=== PATIENT | male | born 1940 | race Caucasian/White ===

== ENCOUNTER 2016-08-29 00:45 | Inpatient (IN) | payer OTHER ==
--- NOTE | 2016-08-29 01:24 | PROVIDER DOCUMENTATION ---
HPI-Respiratory General - General Chief Complaint: Shortness of Breath Stated Complaint: SOB Time Seen by Provider: 08/29/16 00:49 Source: patient Allergies/Adverse Reactions: Patient Allergies Allergy/AdvReac Type Severity Reaction Status Date / Time No Known Allergies Allergy Verified 08/29/16 01:04 Home Medications: Home Medication List Medication Instructions Recorded Confirmed Last Taken Type Cyanocobalamin (Vitamin B-12) 1,000 mcg PO QAM 12/04/12 08/29/16 08/28/16 09:00 History [Vitamin B-12] Pantoprazole [Protonix] 40 mg PO DAILY@0700 #30 tablet 08/22/15 08/29/16 09:00 Rx Docusate Sodium 100 mg PO BID 09/20/15 08/29/16 08/28/16 18:00 History Ibrutinib [Imbruvica] 3 cap PO QHS 09/20/15 08/29/16 08/28/16 20:00 History Metoprolol Succinate E.r. [Toprol 75 mg PO Q12H #270 tablet 09/27/15 08/29/16 18:00 Rx Xl] Acetaminophen [Tylenol] 650 mg PO Q4H PRN PRN #0 tablet 10/13/15 08/29/16 Unknown Rx Sucralfate [Carafate Liquid] 1 gm PO AC PRN #60 udc 10/13/15 08/29/16 07/14/16 07:00 Rx Digoxin [Lanoxin] 150 microgm PO QAM 07/14/16 08/29/16 08/28/16 09:00 History Ferrous Sulfate [Albafort] 325 mg PO BID 07/14/16 08/29/16 08/28/16 20:00 History Insulin Glargine [Lantus] 40 unit SUBQ QHS 07/14/16 08/29/16 08/28/16 20:00 History Insulin Lispro [Humalog] 5 unit SQ AC 07/14/16 08/29/16 08/28/16 18:00 History ATORVAstatin [Lipitor] 10 mg PO QHS #0 tablet 07/16/16 08/29/16 08/28/16 20:00 Rx Warfarin [Coumadin] 3 mg PO SuMoWeThFrSa #0 tablet 12/08/29/16 08/28/16 Rx Warfarin [Coumadin] 5 mg PO Tu@2100 #0 tablet 07/16/16 08/29/16 08/19/16 Rx Folic Acid 1 mg PO QAM 08/29/16 08/29/16 08/28/16 09:00 History Hydrocodone/Acetaminophen [Abernathy 1 each PO PRN PRN 08/29/16 08/29/16 Unknown History 10-325 Tablet] Methocarbamol 500 mg PO PRN PRN 08/29/16 08/29/16 Unknown History Promethazine [Phenergan] 12.5 mg PO Q6H PRN PRN 08/29/16 08/29/16 Unknown History - History of Present Illness-Resp Nature of Presenting Problem: 75 year old M presents to the ED with a cc of SOB and dry cough with an onset of 2 days ago. PT states today he noticed his right lower leg swelling. PT states that his ABD also feels distended which is what is causing him to not be able to take a deep breath. Last BM was this afternoon. Severity in ED: reports: mild Onset/Duration: reports: 2 days ago Timing: reports: still present Cough Quality/Degree: reports: mild, dry cough Associated Symptoms: reports: cough, shortness of breath Similar Symptoms Previously?: No Recently seen or treated by another doctor?: No Review of Systems - Adult - REVIEW OF SYSTEMS - ADULT Constitutional: denies: chills, fever Eyes: reports: no symptoms reported Ears, Nose, Mouth & Throat: reports: no symptoms reported Cardiovascular: denies: chest pain, palpitations Respiratory: reports: cough, shortness of breath Gastrointestinal: denies: nausea, vomiting Genitourinary: reports: no symptoms reported Musculoskeletal: reports: no symptoms reported Integumentary: denies: skin sores/ulcer, skin thickening Neurological: reports: no symptoms reported Psychiatric: reports: no symptoms reported Endocrine: reports: no symptoms reported Hematologic/Lymphatic: reports: no symptoms reported Allergic/Immunologic: reports: no symptoms reported All Other Systems: Reviewed and Negative Past History - Adult - PAST MEDICAL HISTORY-ADULT Review of Records: reports: Nursing Assessment Review, Medications Reviewed Major Childhood Illnesses: reports: denies history Cardiovascular: reports: CAD, HTN, hyperlipidemia Respiratory: reports: denies history Gastrointestinal: reports: GERD Obstetrical/Gynecological: reports: denies history Genitourinary: reports: denies history Musculoskeletal: reports: denies history Neurological: reports: denies history Endocrine/Immune: reports: cancer, Diabetes, Leukemia (CLL, ITP) Other Conditions: reports: denies history - PRIOR SURGERIES/PROCEDURES Surgical/Procedure History: reports: tonsillectomy, other, cardiac stent - IMMUNIZATION STATUS Childhood Immunizations: See Nurse Assessment Flu Vaccine: See Nurse Assessment - FAMILY HISTORY Family History: reviewed, not pertinent - SOCIAL HISTORY Smoking: non-smoker Substance Use: none/never Alcohol Use Frequency: never Physical Exam-General - CONSTITUTIONAL General Appearance: appears well, alert, no apparent distress - EYES Eyes: other (bilateral lower lid erythema) - RESPIRATORY Respiratory: chest non-tender, lungs clear, normal breath sounds - CARDIOVASCULAR Cardiovascular: normal peripheral pulses, regular rate, rhythm, no edema, other (port to left chest) - GASTROINTESTINAL (ABDOMEN) Abdominal Exam: normal bowel sounds, non tender, soft - MUSCULOSKELETAL Extremity: pedal edema (2+ right lower leg, erythema, and an 1x1 cm lesion weaping serous fluid) - SKIN Integumentary: normal color, normal turgor, warm/dry - PSYCHIATRIC Psych/Mental Status: normal mood/affect, normal thought content, normal thought process, oriented x 3 Progress - PLAN OF CARE/RESULTS Progress/Plan/Lab Results: plan of care: imaging, labs, medications, EKG Orders Category Date Time Status Cardiac Monitoring DIRECTED Care 08/29/16 00:50 Active Saline Loc NOW Care 08/29/16 00:50 Active CHEST-PORTABLE [RAD] Stat Exams 08/29/16 00:50 Taken CBC WITH ELECTRONIC DIFF [HEME] Stat Lab 08/29/16 01:15 Completed CK PROFILE [SP CHEM] Stat Lab 08/29/16 01:15 Completed COMPREHENSIVE METABOLIC PANEL [CHEM] Stat Lab 08/29/16 01:15 Completed DIGOXIN [TDM] Stat Lab 08/29/16 01:15 Completed LACTATE, PLASMA [CHEM] Stat Lab 08/29/16 01:15 Completed MAGNESIUM [CHEM] Stat Lab 08/29/16 01:15 Completed PRO B-NATRIURETIC PEPTIDE Stat Lab 08/29/16 01:15 Completed PROTIME WITH INR [COAG] Stat Lab 08/29/16 01:15 Completed PTT [COAG] Stat Lab 08/29/16 01:15 Completed TROPONIN T Stat Lab 08/29/16 01:15 Completed CefTRIAXONE 1 GM/NS [Rocephin 1 gm/Ns] 50 ml Med 08/29/16 01:58 Active IV NOW EKG [EKG] Stat Ther 08/29/16 00:48 Ordered Laboratory Tests 08/29/16 08/29/16 08/29/16 01:15 01:15 01:15 WBC 13.00 H RBC 4.18 L Hgb 12.8 L Hct 37.6 L MCV 90.0 MCH 30.6 MCHC 34.0 RDW Std Deviation 17.3 H Plt Count 372 MPV 10.6 H Immature Gran % (Auto) 0.5 Neut % (Auto) 69.5 Lymph % (Auto) 15.6 L [place] % (Auto) 13.2 H Eos % (Auto) 1.0 Baso % (Auto) 0.2 Immature Gran # (Auto) 0.07 H Neut # (Auto) 9.03 H Lymph # (Auto) 2.03 [place] # (Auto) 1.71 H Eos # (Auto) 0.13 Baso # (Auto) 0.03 PT INR PTT (Actin FS) Sodium 137 Potassium 3.8 Chloride 101 Carbon Dioxide 24 L Anion Gap 12 BUN 10 Creatinine 0.7 Estimated GFR/1.73 m2 > 60 BUN/Creatinine Ratio 14 Glucose 90 Calculated Osmolality 272 Calcium 8.5 L Magnesium 1.8 Total Bilirubin 1.10 H AST 18 ALT 16 Alkaline Phosphatase 124 H Creatine Kinase 31 Troponin T Lyt-D-Idjecuevvis Pept Total Protein 5.6 L Albumin 3.0 L Globulin 2.6 Albumin/Globulin Ratio 1.2 Plasma Lactate Digoxin 1.0 08/29/16 08/29/16 08/29/16 01:15 01:15 01:15 WBC RBC Hgb Hct MCV MCH MCHC RDW Std Deviation Plt Count MPV Immature Gran % (Auto) Neut % (Auto) Lymph % (Auto) [place] % (Auto) Eos % (Auto) Baso % (Auto) Immature Gran # (Auto) Neut # (Auto) Lymph # (Auto) [place] # (Auto) Eos # (Auto) Baso # (Auto) PT 23.2 H INR 2.17 PTT (Actin FS) 37.4 H Sodium Potassium Chloride Carbon Dioxide Anion Gap BUN Creatinine Estimated GFR/1.73 m2 BUN/Creatinine Ratio Glucose Calculated Osmolality Calcium Magnesium Total Bilirubin AST ALT Alkaline Phosphatase Creatine Kinase Troponin T < 0.010 Tbo-F-Eexusbazsjv Pept 223 Total Protein Albumin Globulin Albumin/Globulin Ratio Plasma Lactate Digoxin 08/29/16 01:15 WBC RBC Hgb Hct MCV MCH MCHC RDW Std Deviation Plt Count MPV Immature Gran % (Auto) Neut % (Auto) Lymph % (Auto) [place] % (Auto) Eos % (Auto) Baso % (Auto) Immature Gran # (Auto) Neut # (Auto) Lymph # (Auto) [place] # (Auto) Eos # (Auto) Baso # (Auto) PT INR PTT (Actin FS) Sodium Potassium Chloride Carbon Dioxide Anion Gap BUN Creatinine Estimated GFR/1.73 m2 BUN/Creatinine Ratio Glucose Calculated Osmolality Calcium Magnesium Total Bilirubin AST ALT Alkaline Phosphatase Creatine Kinase Troponin T Dwn-H-Erlifhvifcr Pept Total Protein Albumin Globulin Albumin/Globulin Ratio Plasma Lactate 1.5 Digoxin Vital Signs - 24 hr 08/29/16 00:50 Temperature 97.6 F Pulse Rate 68 Respiratory 26 H Rate Blood Pressure 124/61 O2 Sat by Pulse 91 L Oximetry Pt/family given results. Pt will be admitted to the hospitalist group. PT/ Family in agreement with plan of care. - EKG 1 Time of EKG reading by physician:: 00:53 EKG Read and Signed by:: Jose G Perales EKG Interpretation (*Must complete 3 of following elements*): Abnormal Rate: 66 Rhythm: atrial fibrillation Riva: left QRS: RBB - XRAY 1 XRAY Study: Chest Impression: Abnormal XRAY Interpretation: right middle and lower lobe pneumonia: Dr. Perales-ED MD - CONSULTS/PCP/HOSPITALIST Notification #1 *Consult/PCP/Hospitalist*: Dr. Kang-hospitalist, [facility] Time Discussed: 01:57 Consult Disposition: Will see in ED, Admit Departure - Departure Time of Disposition Order: 02:01 DIAGNOSIS: Right middle lobe pneumonia Qualifiers: Pneumonia type: due to unspecified organism Qualified Code(s): J18.1 - Lobar pneumonia, unspecified organism Right lower lobe pneumonia Qualifiers: Pneumonia type: due to unspecified organism Qualified Code(s): J18.1 - Lobar pneumonia, unspecified organism Disposition: ADMITTED INPATIENT 09 Certified Medical Emergency: Emergent Condition: Stable Referrals: Madi Mortensen MD [Primary Care Provider] - Attestation - Scribe Verification/Attestation Scribe:: Sera Mcduffie Acting as Scribe for:: Jose G Perales Scribe documention review:: This chart was documented by a scribe and accurately reflects the service the provider performed and the decisions made by the provider. Physician Attestation - Physician Attestation I, the provider, attest to the following statement:: Jose G Perales Physician documentation Attestation:: This documentation recorded by the scribe accurately reflects the service I personally performed and the decisions made by me.
[2016-08-29 01:26] LABS: MANUAL DIFF NEEDED? NO
[2016-08-29 01:29] LABS: BASO% 0.2 % (0.0-0.8); EOS# 0.13 X1000 (0.0-0.7); HEMATOCRIT 37.6 % (42.0-52.0); HEMOGLOBIN 12.8 g/dL (14.0-18.0); IMM GRAN# 0.07 X1000 (0.0-0.04); IMM GRAN% 0.5 % (0.0-0.5); LYMPH# 2.03 X1000 (1.2-3.4); LYMPH% 15.6 % (20.5-51.1); MCH 30.6 PG (27-31); MONO# 1.71 X1000 (0.11-0.59); MONO% 13.2 % (1.7-9.3); MPV 10.6 FL (7.4-10.4); NEUT% 69.5 % (42.2-75.2); PLT 372 X1000 (130-400); RBC 4.18 XMIL (4.7-6.1)
[2016-08-29 01:40] LABS: PTT 37.4 Seconds (22.0-36.0)
[2016-08-29 01:45] LABS: INR 2.17; PROTIME 23.2 Seconds (9.2-11.7)
[2016-08-29 01:48] LABS: AGAP 12; ALKALINE PHOSPHATASE 124 U/L (32-122); BUN 10 mg/dL (8-22); CALCIUM 8.5 mg/dL (8.8-10.2); CHLORIDE 101 mmol/L (98-107); CK PROFILE 31 U/L (24-204); COSMO 272; GOT 18 U/L (10-34); GPT 16 U/L (10-44); MAGNESIUM 1.8 mg/dL (1.5-2.7); POTASSIUM 3.8 mmol/L (3.5-5.1); SODIUM 137 mmol/L (136-145); TCO2 24 mmol/L (25-35); TOTAL PROTEIN 5.6 g/dL (6.3-8.3)
[2016-08-29] MEDS ORDERED: ROCEPHIN 1 GM/NS 50 ML IV ONE (01:58)
[2016-08-29 04:38] LABS: URINE MICRO REVIEW NEEDED? NO; URINE SOURCE CLEAN CATCH
[2016-08-29 04:42] LABS: BILIRUBIN URINE NEGATIVE (NEGATIVE); BLOOD URINE NEGATIVE (NEGATIVE); COLOR YELLOW; GLUCOSE URINE NEGATIVE (NEGATIVE); LEUKOCYTES URINE SMALL (NEGATIVE); NITRITE URINE NEGATIVE (NEGATIVE); PROTEIN URINE TRACE mg/dL (NEGATIVE); SP GRAVITY URINE 1.022; TURBIDITY URINE CLEAR (CLEAR); UR EPITHELIAL CELLS <10 /HPF (<10); URINE BACTERIA NEGATIVE /HPF; URINE CULTURE NEEDED? YES; URINE RBC <10 /HPF (<10); UROBILINOGEN URINE 2 mg/dL (NORMAL)
--- NOTE | 2016-08-29 05:24 | EKG Report ---
Test Performed on : 08/29/2016 00:53:28 AM Test Reason : SOB Blood Pressure : / mmHG Vent. Rate : 066 BPM Atrial Rate : 086 BPM P-R Int : 000 ms QRS Dur : 128 ms QT Int : 378 ms P-R-T Axes : 000 -53 022 degrees QTc Int : 396 ms Atrial fibrillation. Left axis deviation Right bundle branch block Anterior infarct , age undetermined Abnormal ECG No previous ECGs available Unconfirmed Result
[2016-08-29] MEDS ORDERED: NORCO-5 PO PRN (06:22)
[2016-08-29] MEDS ORDERED: TYLENOL PO PRN (06:22)
[2016-08-29] MEDS ORDERED: TOPROL XL PO SCH (06:22)
[2016-08-29] MEDS ORDERED: ZOFRAN IV PRN (06:22)
[2016-08-29] MEDS ORDERED: NS 1,000 ML IV ONE (06:22)
[2016-08-29] MEDS ORDERED: DUONEB (A & A) INH PRN (06:22)
[2016-08-29] MEDS ORDERED: PHENERGAN PO PRN (06:22)
[2016-08-29] MEDS ORDERED: VANCOMYCIN IV PER PHARMACY MISC SCH (06:22)
[2016-08-29] MEDS: HUMALOG SUBQ SCH ×4 (06:52→22:53)
[2016-08-29 06:54] LABS: ALLEN TEST YES; BE 3.2 mmoll (-3.0-3.0); BLOOD TYPE ARTERIAL; DRAW SITE R RADIAL; METHB 1.1 % (0.0-1.5); O2(CT) 15.8 mL/dL (15.0-23.0); PCO2(98.6) 37 mmHg (35-45); PO2(98.6) 63 mmHg (60-100); SAMPLE BLOOD; SAO2 95.1 % (95.0-100.0); THB 12.2 g/dL (11.5-17.4); pH(98.6) 7.47 (7.35-7.45)
[2016-08-29 06:55] LABS: MODALITY CANNULA
[2016-08-29] MEDS ORDERED: MERREM 1 GM in NS 50 ML IV ONE (08:00)
--- NOTE | 2016-08-29 08:18 | Diag Imaging Result Document ---
PROCEDURE NAME: CT THORAX W/CONTRAST - 08/29/2016 CT CHEST WITH INTRAVENOUS CONTRAST: COMPARISON: 02/10/2012, recent chest x-rays. FINDINGS: There is a left chest port in good position. There is extensive triple-vessel calcified coronary artery disease. Heart size is grossly normal. The left renal cyst has grown slightly larger now measuring about 4.3 cm. There is a large right pleural effusion occupying about 80% of the right hemithorax. There are stable calcified bilateral pleural plaques. There is significant collapse of the right lung base and some partial collapse of the upper lobe. There is some strandy atelectasis as well as infiltrate in the left lung particularly the lower lobe. There are some shotty mediastinal lymph nodes very similar to the scan from 2012. The bony structures are intact. IMPRESSION: 1. Large right pleural effusion. Significant collapse of the right lung. 2. Patchy infiltrate in the left lung base suspicious for pneumonia or aspiration. 3. Bilateral calcified pleural plaques, stable from prior. 4. Advanced coronary artery disease.
[2016-08-29] MEDS ORDERED: LANOXIN PO SCH (09:00)
[2016-08-29] MEDS: COLACE PO SCH ×2 (09:37→22:51)
[2016-08-29] MEDS: PRILOSEC PO SCH (09:37)
[2016-08-29] MEDS: VITAMIN B-12 PO SCH (09:40)
[2016-08-29] MEDS: FERROUS SULFATE PO SCH ×2 (09:41→17:50)
[2016-08-29] MEDS: FOLIC ACID PO SCH (09:41)
[2016-08-29] MEDS: CLINDAMYCIN 300 MG in NS 50 ML IV SCH ×2 (10:45→18:06)
--- NOTE | 2016-08-29 11:01 | HISTORY AND PHYSICAL ---
DATE AND TIME: 08/29/2016 at 0345 PRIMARY CARE PHYSICIAN: Dr. Madi Mortensen CHIEF COMPLAINT: Shortness of breath. HISTORY OF PRESENT ILLNESS: Mr. Hubbard is a 75-year-old male with a history of multiple medical problems which are most notable for chronic atrial fibrillation, ischemic heart disease, chronic lymphocytic leukemia, idiopathic thrombocytopenic purpura, hypertension and insulin-dependent diabetes mellitus. The patient reports that approximately 2 to 3 days ago, he began having a nonproductive cough. He reports that his cough became worse today. He also reports that he has not felt well all day as well. The patient reports starting yesterday, which would be 08/28/2016, that he began having shortness of breath which increasingly got worse throughout the day. The patient reports that as of right now, he becomes very short of breath and winded with the slightest exertion. He also reports some sinus drainage as well, though denied any fever, body aches, chills, headache, sinus pressure or sore throat. The patient normally does not require oxygen at home, though at this time is requiring nasal cannula at 3 L to maintain oxygen saturations of 94%. The patient does have a history of sleep apnea and is supposed to wear a CPAP machine at night, though does report that he does not routinely use this as directed. On evaluation in the ER, the patient was found to be dyspneic as well as hypoxic and did have elevated white blood cell count of 13,000. Chest x-ray was suspicious for what appeared to be bilateral pneumonia with a possible large right pleural effusion. Chest CT performed did show a large right pleural effusion with collapse of the right lung as well as patchy infiltrate in the left lung base suspicious for pneumonia or aspiration. The patient also did complain of onset of right lower extremity swelling, erythema and warmth approximately 2 days ago. The patient does have a small open sore approximately the size of the end of a pencil eraser that does have what appears to be a serous drainage noted. The patient denies any pain to his right lower extremity and had a negative Rocio sign on examination. At this time, we will admit the patient for further treatment of his right pleural effusion, left lower lobe pneumonia and suspected right lower extremity cellulitis as well as to rule out DVT of right lower extremity. . REVIEW OF SYSTEMS: A 14-point review of systems was conducted with the patient, and all were negative except for pertinent positives mentioned in the above HPI. The patient denied any headache, dizziness, chest pain, abdominal pain, nausea, vomiting, diarrhea, constipation. He denied any dysuria or urinary frequency or pain, numbness or tingling in his extremities. PAST MEDICAL HISTORY: 1. Chronic atrial fibrillation. 2. Vitamin B12 deficiency. 3. Bladder cancer. 4. Ischemic heart disease, status post coronary artery stents x2. 5. Chronic lymphocytic leukemia. 6. Idiopathic thrombocytopenic purpura. 7. Insulin-dependent diabetes mellitus. 8. Gastroesophageal reflux disease. 9. Hypertension. 10.Mixed hyperlipidemia. 11.Obstructive sleep apnea. PAST SURGICAL HISTORY: 1. Splenectomy. 2. Tonsillectomy. SOCIAL HISTORY: The patient denies past or present use of tobacco, alcohol or illicit drug use. FAMILY HISTORY: Positive for his father passing away at age 34 secondary to a hemorrhagic stroke. His father also had a history of hypertension. His mother at the age of 87 secondary to complications of a stroke. ALLERGIES: The patient reports allergies to Dilaudid and morphine. HOME MEDICATIONS: 1. Carafate 1 g p.o. p.r.n. 2. The patient reports he takes Coumadin 3 mg p.o. at night every night except for every third day for which he takes 6 mg p.o. at night. He reports that this has just recently been adjusted due to his INR results. 3. Protonix 40 mg p.o. daily. 4. Toprol-XL 75 mg p.o. q.12 hours. 5. Lispro insulin subcutaneously 5 units before meals. 6. Lantus 40 units subcutaneously nightly at bedtime. 7. Imbruvica 3 capsules p.o. at bedtime. 8. Ferrous sulfate 325 mg p.o. b.i.d. 9. Docusate sodium 100 mg p.o. b.i.d. 10.Lanoxin 150 mcg p.o. q.a.m. 11.Vitamin B12 1000 mcg p.o. q.a.m. 12.Tylenol 650 mg p.o. q.4 hours p.r.n. 13.Atorvastatin 10 mg p.o. nightly at bedtime. 14.[place] 10 mg 1 p.o. p.r.n. as directed. 15.Methocarbamol 500 mg p.o. p.r.n. as directed. 16.Phenergan 12.5 mg p.o. q.6 hours p.r.n. for nausea. 17.Folic acid 1 mg p.o. q.a.m. DIAGNOSTIC DATA: White blood cell count is 13, hemoglobin 12.8, hematocrit 37.6, platelet count 372. PT is 23.2. INR is 2.17. PTT is 37.4. D-dimer is 1.54. Sodium is 137, potassium 3.8, chloride 101, bicarb 24, BUN is 10, creatinine 0.7, GFR greater than 60, glucose 90, calcium 8.5, magnesium 1.8. Total bilirubin is 1.10, AST is 18, ALT is 16, alkaline phosphatase 124. CK is 31. Troponin less than 0.01. ProBNP is 223. Plasma lactate 1.5. Arterial blood gases were obtained on 3 L nasal cannula and showed pH of 7.47, pCO2 of 37, pO2 of 63, HCO3 was 27.3, base excess was 3.2, O2 saturation was 95.1. Digoxin level was 1. A urinalysis was obtained via clean catch and was positive for trace protein, small leukocytes, 10 to 20 white blood cells, though was negative for bacteria, blood, ketone or nitrate. EKG showed atrial fibrillation with a left axis deviation and a right bundle branch block at a rate of 66, QTC was 396. CT of thorax with contrast showed a large right pleural effusion with significant collapse of the right lung. Patchy infiltrate in the left lung base, suspicious for pneumonia or aspiration. Bilateral calcified pleural plaques which were stable from prior and advanced coronary artery disease. Pending diagnostic studies are sputum culture, blood culture, urine culture and venous ultrasound of right lower extremity. PHYSICAL EXAMINATION: VITAL SIGNS: Temperature 97.6, heart rate 78, respirations 19, blood pressure 127/68, oxygen saturation was 94% on nasal cannula at 3 L. GENERAL: Mr. Hubbard is a very pleasant 75-year-old male who was resting comfortably on the ER stretcher. He is in no acute distress. He was awake, alert and able to answer all questions appropriately. HEENT: Head is atraumatic and normocephalic. Pupils are equal, round and reactive to light, were 3 mm bilaterally and brisk. Sclerae are white, no lesions noted. Conjunctivae are pink. The patient does have ectropion noted to bilateral lower eyelids. Oral mucosa is moist. Oropharynx is clear. NECK: Supple. Trachea is midline. No carotid bruits noted upon auscultation bilaterally. No JVD noted. CARDIOVASCULAR: The patient has normal S1 and S2. No murmurs, gallops or rubs appreciated, with a heart rate of 78 with a slightly irregular rhythm. PULMONARY: The patient has symmetrical chest expansion bilaterally. He is in no acute respiratory distress. He was maintaining oxygen saturation at 94% nasal cannula at 3 L. The patient does have diminished lung sounds noted to right lung cast and crackles noted to left lung base. Bilateral upper lung cast did have wheezing noted as well. ABDOMEN: Soft, nontender and nondistended. Bowel sounds were present in all 4 quadrants, were normoactive. EXTREMITIES: The patient does have some erythema, swelling and warmth noted to his right lower extremity from approximately just below the knee down to his ankle. The patient denies any pain upon palpation. Negative Rocio sign noted. Pedal pulses were present, dorsalis pedis as well as posterior tibialis were confirmed with venous Doppler. The patient did have a small wound, size approximately the end of a pencil eraser noted to his anterior right lower extremity that did have a serous drainage noted. All other extremities were within normal limits. Pulse, motor and sensory were intact to all extremities as well. INTEGUMENTARY: The patient's skin is pink, warm, dry and intact except for previous mentioned abnormalities noted in above extremity exam. NEUROLOGICAL: The patient is alert and oriented to person, place, time and situation. Cranial nerves II through XII are grossly intact. ASSESSMENT AND PLAN: 1. Right pleural effusion with significant collapse of the right lung. For this, we have placed a consult with Dr. Rosas with Pulmonology. Dr. Mortensen, who will be the patient's attending physician throughout the rest of his hospital admission, has been made aware of this. I confirmed this with Angel Lujan, ER nurse. We will await further evaluation and recommendations from Dr. Rosas. 2. Left lower lobe pneumonia. For this, we have placed the patient on Merrem 1 g IV q.8 as well as vancomycin IV with Pharmacy to dose. We will continue with aggressive pulmonary toilet. DuoNeb and albuterol and Atrovent treatments q.4 to 6 hours p.r.n. for wheezing. Blood cultures as well as sputum culture have been placed, and we are awaiting those results at this time. We will continue to follow. 3. Right lower extremity cellulitis. For this, we will continue with the above antibiotics as mentioned for pneumonia of Merrem and vancomycin. If possible, we will obtain a culture of drainage noted from the patient's right lower extremity. 4. Elevated D-dimer. Given that the patient does have right lower extremity swelling and erythema, the patient's D-dimer was elevated at 1.54. We have ordered a venous Doppler of right lower extremity and will await those results and will continue to follow. 5. Chronic atrial fibrillation. We will continue with the patient's Coumadin, and we will monitor his INR for any need for dosage adjustments. His rate is controlled at this time at a rate of 66. 6. Chronic lymphocytic leukemia. We will continue with the patient's medication of Imbruvica and will continue to follow this closely. 7. Insulin-dependent diabetes mellitus. We will place the patient on a low dose Lispro sliding scale insulin. We will do pattern fingerstick blood sugars and continue to follow. 8. Hypertension. We will continue with the patient's metoprolol extended release 75 mg p.o. q.12 hours. 9. Gastroesophageal reflux disease and GI prophylaxis. We will continue with the patient's Protonix 40 mg p.o. daily. 10.Hyperlipidemia. We will continue with the patient's atorvastatin 10 mg p.o. nightly at bedtime. The patient will be placed on the Medical Floor with telemetry. Vital signs will be performed q.4 hours, with strict intake and output q.8 hours. DVT prophylaxis at this time is met due to the patient is on current recommended anticoagulation therapy of Coumadin for his chronic atrial fibrillation. We will place him on a diabetic diet. We will repeat a CBC and BMP in the morning. Further orders and recommendations pending hospital course, diagnostic studies and physician evaluation. Dictated by ZAHRAA Amaya for Mathieu Garcia MD
--- NOTE | 2016-08-29 11:17 | Diag Imaging Result Document ---
PROCEDURE NAME: CHEST-PORTABLE - 08/29/2016 SINGLE FRONTAL RADIOGRAPH OF THE CHEST: COMPARISON: 10/10/2015. FINDINGS: Left chest port is in stable position. There is a moderate to large size right pleural effusion and a small left effusion. There is adjacent atelectasis and/or infiltrate at the lung bases. There are increased interstitial markings suggesting edema most likely. Central vasculature is perhaps somewhat prominent indicating pulmonary venous congestion. There is stable cardiomegaly. IMPRESSION: Fairly large right pleural effusion and small left effusion with adjacent atelectasis and/or infiltrate.
[2016-08-29] MEDS: LEVAQUIN 500 MG in NS 100 ML IV SCH (11:22)
[2016-08-29 11:57] LABS: INR 2.22; PROTIME 23.7 Seconds (9.2-11.7)
[2016-08-29] MEDS ORDERED: MERREM 1 GM in NS 50 ML IV SCH (17:00)
--- NOTE | 2016-08-29 17:39 | CONSULTATION ---
DATE OF CONSULTATION: 08/29/2016 REFERRING PHYSICIAN: Dr. Madi Mortensen. PULMONARY CONSULTATION: CHIEF COMPLAINT: Evaluation for pleural effusion, shortness of breath, pneumonia. HISTORY OF PRESENTING ILLNESS: This is a 75-year-old man with a past medical history of sleep apnea, hyperlipidemia, hypertension, GERD, diabetes, ITP, CLL, coronary artery disease status post stent placement, bladder cancer, vitamin B 12 deficiency, and chronic atrial fibrillation, on anticoagulation at home. Presented to the hospital with shortness of breath and significant pleural effusion. PAST MEDICAL HISTORY: As above including sleep apnea, ITP, CLL, hyperlipidemia, hypertension, GERD, diabetes, coronary artery disease status post stent placement, bladder cancer, vitamin B12 deficiency, chronic atrial fibrillation, on anticoagulation. PAST SURGICAL HISTORY: Stent placement, tonsillectomy, splenectomy. SOCIAL HISTORY: Not a smoker. FAMILY HISTORY: Positive for coronary disease and hypertension. ALLERGIES: Positive to morphine and Dilaudid. HOME MEDICATIONS: Reviewed, including Coumadin. MEDICATIONS IN THE HOSPITAL: Were reviewed and they include the following: Tylenol, [place], DuoNeb, Lipitor, vitamin B 12, Lanoxin, Colace, ferrous sulfate, folic acid, Lantus, Humalog, Levaquin, Prilosec, Zofran, and Phenergan. He was on Coumadin earlier and we have to stop that. REVIEW OF SYSTEMS: As detailed in history of presenting illness, otherwise, noncontributory. PHYSICAL EXAMINATION: Vital Signs: Noted. Oxygen saturation is 94% on room air. General: He is awake and slightly lethargic. HEENT: Erythematous conjunctivae on the eyelid side. Neck: Trachea midline. Chest: Reduced entry mainly on the right side. Cardiac: S1, S2. Abdomen: Nontender. Extremities: On lower limb examination, +1 pedal edema. Neurological: Awake and communicative. LABS AND INVESTIGATIONS: A chest CT scan reviewed and showed large side pleural effusion. Patchy left infiltrates, possible pneumonia or aspiration, bilateral calcified pleural plaques, and advanced coronary disease. CBC, CMP, ABGs reviewed with pH 7.47, pCO2 37, PO2 is 63 on nasal cannula. ASSESSMENT AND PLAN: A 75-year-old man with a significant past medical history as above, including atrial fibrillation, on home anticoagulation, coronary artery disease status post stent placement, hyperlipidemia, hypertension, ITP, CLL, who presented to the hospital with now large sided pleural effusion. Pneumonia is possible. I agree with antibiotics. Will hold anticoagulation in preparation for possible thoracentesis. Case discussed with Dr. Madi Mortensen.
--- NOTE | 2016-08-29 18:26 | PROGRESS NOTE ---
DATE: 08/29/2016 SUBJECTIVE: Patient's chart was reviewed. 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 Full evaluation revealed a large right pleural effusion, left lower lobe pneumonia, and suspected right lower extremity cellulitis. Broad- spectrum antibiotics including meropenem and vancomycin were initiated. Lower extremity Doppler was performed of the right lower extremity revealing no evidence of deep venous thrombosis. CT scan confirmed a large right pleural effusion with significant collapse of the right lung. Patchy infiltrate in the left lung base suspicious for pneumonia or aspiration, bilateral calcified pleural plaques and advanced coronary artery disease. The patient was initially seen this morning. Subsequent evaluation through the day revealed reasonable stability. Dr. Camara with Pulmonary Medicine was consulted for further evaluation and management of the large pleural effusion. Because of patient's underlying stability, no acute intervention was felt warranted until INR was more acceptable. The patient currently states he is feeling reasonably well. He does continue to have shortness of breath with minimal exertion. He denies fevers, chills, nausea, vomiting, or chest discomfort. His heart rate has been slightly elevated. OBJECTIVE: Vital Signs: T-max 98.1 degrees, heart rate 68-118, respirations 14-27, blood pressure 124-156/61-102. General: Chronically ill appearing, in no acute distress. Cardiovascular: Irregularly irregular. Slightly tachycardic. Pulmonary: Decreased breath sounds at the right base. Reasonable air movement. Abdomen: Soft, nontender, nondistended. Positive bowel sounds. Extremities: Moves all extremities well. No significant clubbing or cyanosis. Patient has 1 to 2+ lower extremity edema on the right with associated erythema. Neurologic: Cranial nerves 2 through 12 grossly intact. Motor and sensory grossly intact. Psychologic: Examination is appropriate. LABORATORY DATA: White blood cell count 13.0, hemoglobin 12.8, hematocrit 37.6, platelet count 372,000, INR is 2.22, pH 7.47, pCO2 37, PO2 63, bicarbonate 27.3, sodium 137, potassium 3.8, chloride 101, bicarb 24, BUN 10, creatinine 0.7, glucose 90, calcium 8.5, magnesium 1.8. Total bilirubin 1.10, total protein 5.6, albumin 3.0, alkaline phosphatase 124, AST 18, ALT 16, CK total 31, troponin less than 0.010. ASSESSMENT AND PLAN: 1. Right pleural effusion with significant collapse of the right lung - At this point, patient is reasonably comfortable. I discussed case with Dr. Camara. Because of patient's hemodynamic stability, we will allow patient's INR to drift downward without aggressively reversing this. Once his INR is acceptable, we will plan both a diagnostic and therapeutic thoracentesis. We will treat patient's underlying pneumonia as below. 2. Left lower lobe pneumonia - This is confirmed per CT scan. I suspect patient may also have right-sided disease, not apparent secondary to underlying collapse. We will change patient's antibiotics to levofloxacin and clindamycin therapy. We will continue pulmonary toilet, although converting patient to Xopenex secondary to tachycardia. We will encourage aspiration precautions and incentive spirometry. Once again, this will be followed. 3. Right lower extremity cellulitis - Patient will be treated with both levofloxacin and clindamycin for underlying pulmonary disease. I suspect this is likely secondary to an underlying gram-positive organism. Clindamycin should be sufficient. This will be followed. 4. Elevated D-dimer - The patient's CT scan and lower extremity venous Doppler revealed no evidence of thrombus. We will remain aware. 5. Chronic atrial fibrillation - Patient's heart rate has increased through the day. We will continue his home medications and change albuterol to Xopenex. This will be followed. 6. Chronic lymphocytic leukemia - Patient is being treated with improvement. Historically with antibiotics he has developed exacerbations. In the past, he has tolerated levofloxacin well. 7. Insulin-dependent diabetes - I agree with continuing lispro sliding scale and Lantus. 8. Hypertension - We will continue patient's home medications. 9. Reflux disease - We will continue patient on Protonix therapy. 10. Hyperlipidemia - We will continue atorvastatin therapy. 11. Anticoagulation - Patient is anticoagulated with Coumadin. As above, we will hold this with plans to perform a thoracentesis in the near future. 12. Disposition - At this point, patient continues to require alf care in a hospital setting. We will plan discharge home once appropriate.
[2016-08-29] MEDS ORDERED: NS NEB INH SCH (18:30)
[2016-08-29] MEDS ORDERED: LANTUS SUBQ SCH (21:00)
[2016-08-29] MEDS ORDERED: COUMADIN PO SCH (21:00)
--- NOTE | 2016-08-29 21:13 | Extremity Venous Study ---
PROCEDURE NAME: Venous U/S Right Leg - 08/29/2016 REFERRING PHYSICIAN: Mathieu Garcia M.D. READING PHYSICIAN: Guillermo Morley M.D. ASP NET SOFTWARE DEVELOPER: Margot Lopez RVT. INDICATION: Right leg swelling. FINDINGS: The deep and superficial veins of the right lower extremity were imaged throughout their course. All are compressible with forward flow. No thrombus is seen. The bilateral common veins were visualized and reflux was noted in both common femoral veins. INTERPRETATION: No evidence of deep or superficial venous thrombosis in the right lower extremity. There is reflux noted in the bilateral common femoral vein.
[2016-08-29] MEDS: XOPENEX NEB INH SCH (21:45)
[2016-08-29] MEDS ORDERED: INSULIN PEN NEEDLES ONE (22:28)
[2016-08-29] MEDS: LIPITOR PO SCH (22:51)
[2016-08-29] MEDS: TOPROL XL PO SCH (22:52)
[2016-08-29] MEDS: LANTUS SUBQ SCH (22:52)
[2016-08-29] MEDS: PATIENT'S OWN MED PO SCH (22:58)
[2016-08-30] MEDS: CLINDAMYCIN 300 MG in NS 50 ML IV SCH ×3 (02:27→17:03)
[2016-08-30] MEDS: XOPENEX NEB INH SCH ×4 (03:04→21:34)
[2016-08-30] MEDS: TOPROL XL PO SCH ×2 (06:39→17:40)
[2016-08-30] MEDS: PRILOSEC PO SCH (06:40)
[2016-08-30] MEDS: HUMALOG SUBQ SCH ×4 (06:40→20:46)
[2016-08-30 07:01] LABS: MANUAL DIFF NEEDED? NO
[2016-08-30 07:08] LABS: BASO% 0.2 % (0.0-0.8); EOS# 0.05 X1000 (0.0-0.7); EOS% 0.4 % (0.0-10.0); HEMATOCRIT 40.5 % (42.0-52.0); HEMOGLOBIN 13.2 g/dL (14.0-18.0); IMM GRAN# 0.07 X1000 (0.0-0.04); IMM GRAN% 0.5 % (0.0-0.5); LYMPH# 1.29 X1000 (1.2-3.4); LYMPH% 10.1 % (20.5-51.1); MCH 29.3 PG (27-31); MCHC 32.6 g/dL (33-37); MCV 89.8 FL (81-99); MONO# 1.53 X1000 (0.11-0.59); MPV 10.4 FL (7.4-10.4); NEUT% 76.8 % (42.2-75.2); PLT 404 X1000 (130-400); RBC 4.51 XMIL (4.7-6.1)
[2016-08-30 07:12] LABS: INR 2.2; PROTIME 23.5 Seconds (9.2-11.7)
[2016-08-30 07:35] LABS: AGAP 12; BUN 11 mg/dL (8-22); CALCIUM 8.6 mg/dL (8.8-10.2); CHLORIDE 101 mmol/L (98-107); COSMO 282; POTASSIUM 4.6 mmol/L (3.5-5.1); SODIUM 140 mmol/L (136-145); TCO2 27 mmol/L (25-35)
[2016-08-30] MEDS: LANOXIN PO SCH (08:13)
[2016-08-30] MEDS: COLACE PO SCH ×2 (08:13→20:46)
[2016-08-30] MEDS: VITAMIN B-12 PO SCH (08:13)
[2016-08-30] MEDS: FOLIC ACID PO SCH (08:13)
[2016-08-30] MEDS: FERROUS SULFATE PO SCH ×2 (08:13→16:41)
[2016-08-30] MEDS ORDERED: VITAMIN K SUBQ ONE (10:44)
[2016-08-30] MEDS: LEVAQUIN 500 MG in NS 100 ML IV SCH (11:45)
--- NOTE | 2016-08-30 13:16 | PROGRESS NOTE ---
DATE: 08/30/2016 SUBJECTIVE: The patient states that he had an awful night. He stated that every time he tried to sleep whether lying down or sitting he would wake up "smothering." He does not describe any chest pain or palpitations. He is reasonably comfortable when he is awake. He has theorized that his non use of CPAP as he had been doing at home may be partially to blame. I tried to explain to the patient that the size of his pleural effusion was probably affecting his respiratory status as well. OBJECTIVE: Vital Signs: Temperature 97.4, pulse rate 76, blood pressure 119/62. PHYSICAL EXAMINATION: General: He is a well-developed, white male, in no acute distress. In general, he is alert, oriented, conversive, and appropriate. The patient's left lung is clear. There are diminished breath sounds in the base of the left lung but surprisingly good air movement relative to the description of his CT scan and the size of pleural effusion. There is no wheezing present. Cardiovascular: He is irregularly irregular at a rate controlled. Extremities: 1+ lower extremity edema on the right. Minimal erythema. LABORATORY: White cell count was 12.7, hematocrit 40.5. INR was 2.20, serum electrolytes were normal. Blood sugars were hovering around 150. ASSESSMENT/PLAN: 1. Patient's large pleural effusion and bilateral pneumonia are being addressed with antibiotics. Thoracentesis is planned next week under ultrasound guidance once the patient's INR returns to a more reasonable range. 2. Patient will be allowed to use his home nasal CPAP and hopefully that will help him to breathe better as he sleeps. 3. The patient's right lower extremity cellulitis seems to be resolving. He is on dual antibiotic therapy which would also cover his pneumonia. 4. The patient's chronic atrial fibrillation is rate controlled. 5. The patient's anticoagulation status has not drifted down over the past day with him not taking the Coumadin. I have planned to give him 2 mg of vitamin K in an effort to bring that down a little more quickly without completely reversing his anticoagulation. 6. The patient has insulin-dependent diabetes. Appears to be well controlled. 7. Hypertension. Control is adequate. 8. The patient continues to require inpatient care. We are hopeful that if we can get his INR down by Thursday, we can perform diagnostic and therapeutic thoracentesis.
[2016-08-30] MEDS: LIPITOR PO SCH (20:45)
[2016-08-30] MEDS: PATIENT'S OWN MED PO SCH (20:45)
[2016-08-30] MEDS: LANTUS SUBQ SCH (20:47)
[2016-08-30] MEDS ORDERED: COUMADIN PO SCH (21:00)
[2016-08-31] MEDS: XOPENEX NEB INH SCH ×4 (03:04→22:41)
[2016-08-31] MEDS: CLINDAMYCIN 300 MG in NS 50 ML IV SCH ×3 (05:42→21:19)
[2016-08-31] MEDS: PRILOSEC PO SCH (06:16)
[2016-08-31] MEDS: TOPROL XL PO SCH ×2 (06:16→17:29)
[2016-08-31] MEDS: HUMALOG SUBQ SCH ×4 (06:16→20:20)
[2016-08-31 07:18] LABS: INR 1.58; PROTIME 16.8 Seconds (9.2-11.7)
[2016-08-31] MEDS: LANOXIN PO SCH (09:42)
[2016-08-31] MEDS: COLACE PO SCH ×2 (09:43→20:19)
[2016-08-31] MEDS: VITAMIN B-12 PO SCH (09:43)
[2016-08-31] MEDS: FERROUS SULFATE PO SCH ×2 (09:43→17:25)
[2016-08-31] MEDS: FOLIC ACID PO SCH (09:43)
[2016-08-31] MEDS: LEVAQUIN 500 MG in NS 100 ML IV SCH (11:45)
--- NOTE | 2016-08-31 11:50 | PROGRESS NOTE ---
DATE: 08/31/2016 SUBJECTIVE: The patient states that he slept much better last night. This was not due to the use of his home CPAP machine though. He states that he found a position lying on the right side in a semi- position which allowed him to sleep. At times his CPAP was more of an annoyance than a help. He continues on oxygen per nasal cannula. He otherwise feels well and is eating. OBJECTIVE: Vital Signs: 98.3, 73, 16, 108/61. PHYSICAL EXAMINATION: General: He is a well-developed, white male, in no acute distress. Lungs: Patient's lungs are generally clear on the left side. He has decreased breath sounds from about the mid thorax and downward in the posterior right. There are slightly diminished breath sounds in the right upper lobe as well. Cardiovascular: Irregularly irregular. rate control of 73. Extremities: Show trace peripheral edema. There is a small amount of erythema on the leg previously diagnosed with cellulitis. LABORATORY: INR was 1.58. ASSESSMENT AND PLAN: 1. The patient's right pleural effusion will need to be addressed. I think that his INR should be in a good position tomorrow to do this. I have ordered an ultrasound-guided thoracentesis in radiology for tomorrow. We will recheck a PT/INR and other lab work prior to that. Hold him NPO after midnight in the expectation of having this procedure. 2. The patient has left lower lobe pneumonia. We aware of this and it was confirmed by CT scan. He is on dual antibiotic therapy for both a pneumonia and cellulitis. 3. Right lower extremity cellulitis. This appears to be improving clinically. He has had no fever and as stated earlier, he is on dual antibiotic therapy which should be adequate for causative organisms. 4. Chronic atrial fibrillation, stable. 5. chronic lymphocytic leukemia, aware. 6. Diabetes. Appears to be reasonably well controlled on fingerstick blood sugars. 7. Hypertension, stable. 8. Disposition. The patient will continue inpatient care for now. We plan to have an appropriate PT and INR tomorrow that will us to undertake an ultrasound-guided thoracentesis for diagnostic and therapeutic purposes.
[2016-08-31] MEDS: PATIENT'S OWN MED PO SCH (20:19)
[2016-08-31] MEDS: LIPITOR PO SCH (20:19)
[2016-08-31] MEDS: LANTUS SUBQ SCH (20:20)
[2016-08-31] MEDS ORDERED: COUMADIN PO SCH (21:00)
[2016-09-01] MEDS: XOPENEX NEB INH SCH ×4 (03:22→23:03)
[2016-09-01] MEDS: D50W SYRINGE ONE ×2 (03:55→08:31)
[2016-09-01] MEDS: CLINDAMYCIN 300 MG in NS 50 ML IV SCH ×3 (06:35→21:00)
[2016-09-01] MEDS: PRILOSEC PO SCH (06:36)
[2016-09-01] MEDS: TOPROL XL PO SCH ×2 (06:36→17:56)
[2016-09-01] MEDS: HUMALOG SUBQ SCH ×4 (06:36→20:29)
[2016-09-01 07:07] LABS: MANUAL DIFF NEEDED? NO
[2016-09-01 07:30] LABS: AGAP 8; ALBUMIN 3.1 g/dL (3.5-5.0); ALKALINE PHOSPHATASE 111 U/L (32-122); BUN 14 mg/dL (8-22); CALCIUM 8.6 mg/dL (8.8-10.2); CHLORIDE 102 mmol/L (98-107); COSMO 276; GOT 17 U/L (10-34); GPT 12 U/L (10-44); POTASSIUM 4.6 mmol/L (3.5-5.1); SODIUM 139 mmol/L (136-145); TCO2 29 mmol/L (25-35); TOTAL BILIRUBIN 0.91 mg/dL (0.20-1.00); TOTAL PROTEIN 5.4 g/dL (6.3-8.3)
[2016-09-01 07:51] LABS: BASO% 0.1 % (0.0-0.8); EOS# 0.06 X1000 (0.0-0.7); EOS% 0.5 % (0.0-10.0); HEMATOCRIT 36.9 % (42.0-52.0); HEMOGLOBIN 12.2 g/dL (14.0-18.0); IMM GRAN# 0.07 X1000 (0.0-0.04); IMM GRAN% 0.6 % (0.0-0.5); LYMPH# 1.26 X1000 (1.2-3.4); MCH 30.1 PG (27-31); MCHC 33.1 g/dL (33-37); MCV 91.1 FL (81-99); MONO% 12.2 % (1.7-9.3); MPV 10.5 FL (7.4-10.4); NEUT% 75.6 % (42.2-75.2); PLT 358 X1000 (130-400); RBC 4.05 XMIL (4.7-6.1)
[2016-09-01 07:53] LABS: INR 1.27; PROTIME 13.5 Seconds (9.2-11.7)
--- NOTE | 2016-09-01 11:38 | Diag Imaging Result Document ---
PROCEDURE NAME: US THORACENTESIS - 09/01/2016 ULTRASOUND GUIDED RIGHT THORACENTESIS: PROCEDURE: The risks and benefits including the possibility of bleeding, infection, reaction to lidocaine, and pneumothorax was discussed with the patient and he agreed. Following sterile preparation of the skin posteriorly and administration of 1% lidocaine to the skin and deeper soft tissues, the thoracentesis catheter was placed and subsequent approximately 1500 mL of serosanguineous fluid was aspirated. This was sent in its entirety to the laboratory for cytology and other studies. The patient tolerated the procedure well. IMPRESSION: Successful ultrasound-guided thoracentesis.
--- NOTE | 2016-09-01 11:45 | Diag Imaging Result Document ---
PROCEDURE NAME: CHEST-2 VIEWS - 09/01/2016 INSPIRATORY AND EXPIRATORY CHEST: FINDINGS: There is no evidence of a pneumothorax. The pleural fluid collection on the right has diminished slightly in volume since the previous study of 08/29/2016 status-post thoracentesis. IMPRESSION: No evidence of a pneumothorax.
[2016-09-01] MEDS: LEVAQUIN 500 MG in NS 100 ML IV SCH (12:25)
[2016-09-01] MEDS: LANOXIN PO SCH (12:26)
[2016-09-01] MEDS: FOLIC ACID PO SCH (12:27)
[2016-09-01] MEDS: VITAMIN B-12 PO SCH (12:27)
[2016-09-01] MEDS: FERROUS SULFATE PO SCH ×2 (12:27→16:28)
[2016-09-01] MEDS: COLACE PO SCH ×2 (12:27→20:28)
[2016-09-01 14:04] LABS: TOTAL PROT BODY FLUID 3.3 g/dL
[2016-09-01 14:34] LABS: DIFF NEEDED? YES; WBC BF 484 /cumm
[2016-09-01 14:41] LABS: SPECIMEN PLEURAL FLUID
[2016-09-01 14:49] LABS: MONOS 88 %; POLYS 12 %
[2016-09-01] MEDS: LIPITOR PO SCH (20:27)
[2016-09-01] MEDS: LANTUS SUBQ SCH (20:28)
[2016-09-01] MEDS: PATIENT'S OWN MED PO SCH (20:29)
[2016-09-01] MEDS ORDERED: COUMADIN PO SCH (21:00)
--- NOTE | 2016-09-01 21:27 | PROGRESS NOTE ---
DATE: 09/01/2016 SUBJECTIVE: The events of the weekend were reviewed. In summary, patient's overall condition has been reasonably stable. He has been continued on IV antibiotic coverage. His INR has been allowed to drift downwards in preparation for a thoracentesis, diagnostic and therapeutic. This morning, patient states he felt reasonably well. He was prepared for thoracentesis. The patient's thoracentesis was performed by Radiology without incident. This evening, patient states he feels much improved. His breathing has shown significant improvement status post thoracentesis. He denies fevers, chills, nausea, vomiting, or chest discomfort. OBJECTIVE: Vital signs: Temperature maximum 98.6 degrees. Heart rate 81-106, respirations 16- 21, blood pressure 103-143/46-72. General: No acute distress. Cardiovascular: Irregularly irregular. No significant murmurs, rubs, or gallops. Pulmonary: Decreased breath sounds, right base. Abdomen: Soft, nontender, nondistended. Positive bowel sounds. Extremities: Moves all extremities well. No significant clubbing or cyanosis. Patient has 1+ lower extremity edema on the right with decreased erythema. Dermatologic: Evaluation reveals decreased erythema to the right lower extremity. LABORATORY DATA: White blood cell count 11.46, hemoglobin 12.2, hematocrit 36.9, platelet count 358,000. PT 13.5, INR is 1.27. Sodium 139, potassium 4.6, chloride 102, bicarb 29, BUN 14, creatinine 0.9, glucose 68, calcium 8.6, total bilirubin 0.91, total protein 5.4, albumin 3.1, alkaline phosphatase 111, AST 17, ALT 12. ASSESSMENT AND PLAN: 1. A right pleural effusion with significant collapse of the right lung-as above, patient had a diagnostic and therapeutic thoracentesis performed today. His overall clinical condition has improved considerably. We will await fluid studies to determine the etiology. For now, we will continue IV antibiotic coverage. 2. Left lower lobe pneumonia-patient has achieved improvement in his overall condition over the weekend. For now, we will continue levofloxacin and clindamycin therapy. We will continue Xopenex nebulizer treatment. 3. Right lower extremity cellulitis-patient has achieved improvement with antibiotic coverage. We will follow this. 4. Chronic atrial fibrillation-patient is rate controlled. We will plan to resume Coumadin therapy tonight. 5. Chronic lymphocytic leukemia-he is followed routinely by Dr. Juju Chua. His counts remain stable. 6. Insulin-dependent diabetes-we will continue patient on Lantus and sliding scale insulin. 7. Hypertension-patient's blood pressure is controlled on his current regimen. 8. Reflux disease-we will continue Protonix therapy. 9. Hyperlipidemia-we will continue patient on atorvastatin therapy. 10. Anticoagulation-we will resume patient's Coumadin tonight. We will follow serial prothrombin time/international normalized ratio evaluations. 11. Disposition-at this point, patient continues to require [facility] care in the hospital setting. Should patient's overall condition continue to improve, we will consider discharge home in the a.m.
[2016-09-02] MEDS: XOPENEX NEB INH SCH ×3 (04:11→14:52)
[2016-09-02] MEDS: CLINDAMYCIN 300 MG in NS 50 ML IV SCH ×2 (06:51→13:19)
[2016-09-02] MEDS: HUMALOG SUBQ SCH ×3 (06:52→15:57)
[2016-09-02] MEDS: TOPROL XL PO SCH ×2 (06:52→18:18)
[2016-09-02] MEDS: PRILOSEC PO SCH (06:52)
[2016-09-02 07:50] LABS: MANUAL DIFF NEEDED? NO
[2016-09-02 08:08] LABS: INR 1.16; PROTIME 12.3 Seconds (9.2-11.7)
[2016-09-02] MEDS: VITAMIN B-12 PO SCH (08:10)
[2016-09-02] MEDS: LANOXIN PO SCH (08:10)
[2016-09-02] MEDS: FOLIC ACID PO SCH (08:10)
[2016-09-02] MEDS: FERROUS SULFATE PO SCH ×2 (08:10→18:18)
[2016-09-02] MEDS: COLACE PO SCH (08:10)
[2016-09-02 08:11] LABS: BASO% 0.2 % (0.0-0.8); EOS# 0.11 X1000 (0.0-0.7); EOS% 1.1 % (0.0-10.0); HEMATOCRIT 38.5 % (42.0-52.0); HEMOGLOBIN 12.7 g/dL (14.0-18.0); IMM GRAN# 0.05 X1000 (0.0-0.04); IMM GRAN% 0.5 % (0.0-0.5); LYMPH# 1.92 X1000 (1.2-3.4); LYMPH% 19.7 % (20.5-51.1); MCH 30.1 PG (27-31); MCV 91.2 FL (81-99); MONO# 1.29 X1000 (0.11-0.59); MONO% 13.2 % (1.7-9.3); MPV 10.3 FL (7.4-10.4); NEUT% 65.3 % (42.2-75.2); PLT 358 X1000 (130-400); RBC 4.22 XMIL (4.7-6.1)
[2016-09-02 08:28] LABS: AGAP 9; ALBUMIN 3.1 g/dL (3.5-5.0); ALKALINE PHOSPHATASE 115 U/L (32-122); BUN 15 mg/dL (8-22); CALCIUM 8.3 mg/dL (8.8-10.2); CHLORIDE 101 mmol/L (98-107); COSMO 279; GOT 15 U/L (10-34); GPT 12 U/L (10-44); POTASSIUM 4.6 mmol/L (3.5-5.1); SODIUM 138 mmol/L (136-145); TCO2 28 mmol/L (25-35); TOTAL BILIRUBIN 0.99 mg/dL (0.20-1.00); TOTAL PROTEIN 5.3 g/dL (6.3-8.3)
[2016-09-02 09:08] LABS: FREE T4 1.52 ng/dL (0.93-1.70)
[2016-09-02] MEDS: LEVAQUIN 500 MG in NS 100 ML IV SCH (11:10)
[2016-09-02 13:45] VITALS: BP 113/47
[2016-09-02] MEDS ORDERED: HEPARIN INJ ONE (18:58)
[2016-09-02] MEDS ORDERED: HEPARIN ONE (19:07)
--- NOTE | 2016-09-02 20:54 | DISCHARGE SUMMARY ---
ADMISSION DATE: 08/29/2016 DISCHARGE DATE: 09/02/2016 ADMISSION DIAGNOSIS: Shortness of breath. DISCHARGE DIAGNOSES: 1. Right pleural effusion with significant collapse of the right lung. 2. Left lower lobe pneumonia. 3. Right lower extremity cellulitis. 4. Chronic atrial fibrillation, present on arrival. 5. Chronic lymphocytic leukemia, present on arrival. 6. Insulin-dependent diabetes, present on arrival. 7. Hypertension, present on arrival. 8. Reflux disease, present on arrival. 9. Hyperlipidemia, present on arrival. 10. Anticoagulation, present on arrival. CONSULTATIONS: Tang Camara M.D., Pulmonary Medicine was consulted for further evaluation and management of a large pleural effusion and shortness of breath. PROCEDURES: 1. Chest x-ray was performed on 08/29/2016 which revealed a fairly large right pleural effusion and small left pleural effusion with adjacent atelectasis and/or infiltrate. 2. CT scan of the chest was performed on 08/29/2016 which revealed: Large right pleural effusion. Significant collapse of the right lung. Patchy infiltrate in the left lung base suspicious for pneumonia or aspiration. Bilateral calcified pleural plaques, stable from prior. Advanced coronary artery disease. 3. Ultrasound-guided thoracentesis was performed on 09/01/[address] Arnie Cruz. 4. Chest x-ray was performed on 07/01/2017 status post thoracentesis revealing pleural fluid collection on the right has diminished slightly in volume since the previous study. No evidence of pneumothorax. HISTORY AND PHYSICAL EXAMINATION: See admit note. PHYSICAL EXAMINATION PRIOR TO DISCHARGE: Vital Signs: Temperature 98.4 degrees, heart rate 75, respirations 20, blood pressure is 113/47, O2 saturation 93%. General: Chronically ill appearing, in no acute distress. Cardiovascular: Irregularly irregular. No significant murmurs, rubs, or gallops. Pulmonary: Decreased breath sounds at the right base otherwise clear. Abdomen: Soft, nontender, nondistended. Positive bowel sounds. Extremities: Moves all extremities well. No significant clubbing or cyanosis. Patient has 1+ lower extremity edema on the right and trace on the left. Dermatologic: Evaluation reveals improving rash to the right lower extremity. LABORATORY DATA PRIOR TO DISCHARGE: White blood cell count 9.76, hemoglobin 12.7, hematocrit 38.5, platelet count 358,000, PT 12.3, INR 1.16, sodium 138, potassium 4.6, chloride 101, bicarb 28, BUN 15, creatinine 0.9, glucose 146, calcium 8.3, total bilirubin 0.99, total protein 5.3, albumin 3.1, alkaline phosphatase 115, AST 15, ALT 12, TSH 0.84, free T4 of 1.52. HOSPITAL COURSE: The patient was admitted as per history and physical examination. Hospital course per condition is as follows. 1. Large right pleural effusion with significant collapse of the right lung - Upon admission, patient was noted to have profound shortness of breath. This likely was secondary to a combination of a large right pleural effusion and left lower lobe pneumonia. The patient was admitted and placed on broad-spectrum antibiotic therapy. A thoracentesis was performed as described above. 1500 mL of pleural fluid was removed. Patient tolerated this well. Thus far, patient's fluid has been analyzed with a few white blood cells and a borderline transudative/exudative appearance. Cytology and cultures are pending. The patient will be discharged home on antibiotic coverage with the working diagnosis of a parapneumonic effusion. The patient and the patient's have been instructed that this fluid could reaccumulate. We will follow his clinical course very closely as an outpatient. Should this reaccumulate, we will have a low threshold for repeat thoracentesis. 2. Left lower lobe pneumonia - This was diagnosed per CT scan. The patient was started on clindamycin and levofloxacin therapy. While hospitalized, he tolerated this well. We will continue this and as needed ProAir HFA as an outpatient. We will arrange close followup. 3. Right lower extremity cellulitis - Upon admission, patient was noted to have asymmetric lower extremity edema. He was also noted to have significant erythema consistent with cellulitis of the right lower extremity. Lower extremity venous Dopplers returned negative for a DVT. Patient was started on clindamycin and levofloxacin therapy. While hospitalized, his overall condition improved considerably. This will be followed as an outpatient as well. 4. Chronic atrial fibrillation - Patient remained rate controlled while hospitalized. We will continue his current regimen. 5. Chronic lymphocytic leukemia - Patient was maintained on Imbruvica therapy. He will follow up with Dr. Juju Chua. 6. Insulin-dependent diabetes - Patient was continued on Lantus and sliding scale insulin. He tolerated this well and blood sugars remained reasonably controlled while hospitalized. 7. Hypertension - The patient's blood pressure remained reasonably controlled on his current regimen. 8. Reflux disease - The patient was maintained on Protonix therapy with adequate response. 9. Hyperlipidemia - Patient was continued on atorvastatin therapy while hospitalized. 10. Anticoagulation - Upon admission, the patient's INR was noted to be 2.17. Patient's INR was allowed to drift downward without intervention in preparation for the thoracentesis. After the thoracentesis was performed, Coumadin was resumed. At time of discharge, INR was 1.16. This will be followed as an outpatient as well. DISCHARGE CONDITION: Good. DISPOSITION: Discharge to home. MEDICATIONS: 1. ProAir HFA 1-2 puffs every 4-6 hours as needed. 2. Clindamycin 300 mg every 8 hours. 3. Levofloxacin 500 mg daily for 7 days. 4. Metoprolol ER 75 mg every 12 hours. 5. Coumadin 3 mg for 2 days followed by 6 mg on the 3rd day. 6. Atorvastatin 10 mg at bedtime. 7. Acetaminophen 650 mg every 4 hours as needed. 8. Vitamin B12 1000 mcg q.a.m. 9. Digoxin 150 mcg q.a.m. 10. Colace 100 mg twice daily. 11. Iron sulfate 325 mg twice daily. 12. Folic acid 1 mg daily. 13. Imbruvica 3 capsules at bedtime. 14. Lantus 40 units at bedtime. 15. Lispro 5 units plus sliding scale with meals. 16. Pantoprazole 40 mg daily. 17. Phenergan as needed. FOLLOWUP: The patient is to follow up with me in approximately 1 week.
[2016-09-02] MEDS ORDERED: COUMADIN PO SCH (21:00)
[2016-09-03] MEDS ORDERED: COUMADIN PO SCH (21:00)
--- NOTE | 2016-09-18 02:00 | DISCHARGE SUMMARY ---
ADMISSION DATE: 08/29/2016 DISCHARGE DATE: 09/02/2016 DISCHARGE SUMMARY ADDENDUM: While hospitalized, the patient was diagnosed with pneumonia. A definitive pathogen was not identified while hospitalized. He was treated for probable community- acquired pneumonia and possible aspiration with clindamycin and levofloxacin therapy.
== END 2016-09-02 19:20 | disposition home or self-care (01) | DRG 194 ==
LOC: ED 00:45 → EDIPHOLD 07:53 → 3N 15:33
PROVIDERS: ADMIT Internal Medicine; ATTEND Internal Medicine
PROC: 0W993ZX Drainage of Right Pleural Cavity, Percutaneous Approach, Diagnostic (ICD-10-PCS; principal; 2016-09-01)
DX: J18.9 Pneumonia, unspecified organism (principal); J91.8 Pleural effusion in other conditions classified elsewhere; L03.115 Cellulitis of right lower limb; C91.10 Chronic lymphocytic leukemia of B-cell type not having achieved remission; I48.2 Chronic atrial fibrillation; J98.11 Atelectasis; E11.9 Type 2 diabetes mellitus without complications; I10 Essential (primary) hypertension; K21.9 Gastro-esophageal reflux disease without esophagitis; E78.5 Hyperlipidemia, unspecified; I25.10 Atherosclerotic heart disease of native coronary artery without angina pectoris; H02.102 Unspecified ectropion of right lower eyelid; H02.105 Unspecified ectropion of left lower eyelid; R79.1 Abnormal coagulation profile; E53.8 Deficiency of other specified B group vitamins; J92.9 Pleural plaque without asbestos; G47.33 Obstructive sleep apnea (adult) (pediatric); Z79.4 Long term (current) use of insulin; Z79.01 Long term (current) use of anticoagulants; Z90.81 Acquired absence of spleen; Z82.3 Family history of stroke; Z82.49 Family history of ischemic heart disease and other diseases of the circulatory system; Z79.899 Other long term (current) drug therapy; Z95.5 Presence of coronary angioplasty implant and graft; Z85.51 Personal history of malignant neoplasm of bladder
CPT/HCPCS: 32555; 71010; 71020; 71260; 80048; 80053; 80162; 81001; 82150; 82550; 82805; 82945; 82948; 83605; 83615; 83735; 83880; 83986; 84157; 84439; 84443; 84484; 85025; 85379; 85610; 85730; 87040; 87070; 87088; 87205; 88112; 88305; 89051; 93005; 93971; 94640; 94761; 94799; 96365; 96366; 96367; J0696; J1815; J2185; J3430; J7030; Q9967; 97116-GP; 97530-GP; S0077

== ENCOUNTER 2017-01-09 16:05 | Inpatient (IN) ==
[2017-01-09] MEDS ORDERED: TYLENOL PO PRN ×2 (16:43→17:18)
[2017-01-09] MEDS ORDERED: VANCOMYCIN IV PER PHARMACY MISC SCH (17:00)
[2017-01-09] MEDS ORDERED: PHENERGAN PO PRN (17:18)
[2017-01-09 18:50] LABS: BASO% 0.7 % (0.0-0.8); EOS# 0.06 X1000 (0.0-0.7); EOS% 0.4 % (0.0-10.0); HEMATOCRIT 37.6 % (42.0-52.0); HEMOGLOBIN 12.5 g/dL (14.0-18.0); INR 1.67; LYMPH# 2.56 X1000 (1.2-3.4); LYMPH% 19.1 % (20.5-51.1); MANUAL DIFF NEEDED? YES; MCH 30.5 PG (27-31); MCHC 33.2 g/dL (33-37); MCV 91.7 FL (81-99); MONO# 1.59 X1000 (0.11-0.59); MONO% 11.9 % (1.7-9.3); MPV 10.9 FL (7.4-10.4); NEUT% 67.9 % (42.2-75.2); PLT 400 X1000 (130-400); PROTIME 18.1 Seconds (9.2-11.7)
--- NOTE | 2017-01-09 19:04 | HISTORY AND PHYSICAL ---
PRIMARY CARE PHYSICIAN: Dr. Madi Mortensen. CHIEF COMPLAINT: Right great toe pain. HISTORY OF PRESENT ILLNESS: This 76-year-old white male with a very complicated past medical history presents for evaluation of right great toe pain. Current history of present illness began approximately 2 weeks ago. At that time, patient developed ulceration of the plantar aspect of the right great toe. The patient attempted to treat this symptomatically. He noted no significant pain, drainage, or localized fever/erythema. On Thursday patient states he worked in his yard. After working, he removed his shoe and sock and partially tore his toenail. That night patient removed this partially torn toenail without incident. Since that time, he has developed significant erythema, swelling, and localized fever to the toe. He has noted a discharge with foul odor at the nail bed. Patient was seen by a nurse practitioner yesterday and was prescribed Bactrim. He has demonstrated mild improvement in his erythema, but no significant improvement. The patient presented to my office for further evaluation. Patient will be admitted to the hospital for full evaluation and management of a concerning diabetic foot ulcer with underlying infection. Of note, patient denies systemic symptoms including fevers, chills, nausea, vomiting, change in bowel movements, or change in urination. Patient states his p.o. intake has been reasonable. PAST MEDICAL HISTORY: 1. Abnormal electrocardiogram with longstanding atrial fibrillation, right bundle branch block, and bifascicular block. 2. Abnormal skin examination followed routinely by Dr. Wu. 3. Moderate aortic stenosis. 4. Atrial fibrillation. 5. History of bladder cancer. 6. Ischemic heart disease. 7. Depression. 8. Type 2 diabetes, insulin dependent. 9. Chronic lower extremity edema. 10. Reflux disease. 11. Hypertension. 12. Folic acid deficiency. 13. Hyperlipidemia. 14. 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 15. Iron deficiency. 16. Left ventricular hypertrophy. 17. Chronic lymphocytic leukemia. 18. Anticoagulation. 19. Chronic low back pain. 20. Mitral regurgitation. 21. Obstructive sleep apnea. 22. Recent history of a large pleural effusion of unknown etiology. 23. Pulmonary hypertension. 24. History of macular degeneration. 25. Vitamin B12 deficiency. CURRENT MEDICATIONS: 1. Atorvastatin 20 mg at bedtime. 2. Colace 100 mg twice daily. 3. Digoxin 250 mcg daily. 4. Iron sulfate 325 mg daily. 5. Folic acid 1 mg daily. 6. Imbruvica 140 mg 3 capsules daily. 7. Lantus 45 units at bedtime. 8. Methocarbamol 500 mg as needed. 9. Metoprolol 75 mg twice daily. 10. [place] 10/325 as needed. 11. NovoLog sliding scale with meals. 12. Pantoprazole 40 mg daily. 13. Phenergan as needed. 14. Vitamin B12 1000 mcg daily. 15. Coumadin 3 mg at bedtime. ALLERGIES: The patient answered no known drug allergies. SOCIAL HISTORY: Patient denies tobacco, alcohol or illicit drug use. 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 He enjoys woodworking and [employer] trucks. He does not exercise routinely. FAMILY HISTORY: Patient's father passed at age 34 secondary to complications of a cerebral aneurysm. He had a history of diabetes. Patient's mother passed at age 87 secondary to complications of a stroke. She had a history of diabetes. REVIEW OF SYSTEMS: A 12 point review of systems was performed. Pertinent positives and negatives noted in history present illness. PHYSICAL EXAMINATION: VITAL SIGNS: Temperature 97.7 degrees, heart rate 80, respirations 20, blood pressure is 129/64. GENERAL: Well nourished, well developed, no acute distress. HEENT: Normocephalic, atraumatic. Pupils equal, round, reactive to light. Extraocular muscles intact. Sclerae anicteric. [place] conjunctivae. Oral and nasopharynx clear without exudate. NECK: Supple. No lymphadenopathy. No thyromegaly. No bruits auscultated. CARDIOVASCULAR: Irregularly irregular. No significant murmurs, rubs, or gallops. PULMONARY: Clear to auscultation bilaterally. ABDOMEN: Soft, nontender, nondistended. Positive bowel sounds. EXTREMITIES: Moves all extremities well. No significant clubbing or cyanosis. Patient has 1+ lower extremity edema on the left and 2+ lower extremity edema on the right. DERMATOLOGIC: Evaluation reveals an erythematous and edematous right great toe with purulent drainage and from the nail bed. An ulceration is noted in the plantar aspect of the great toe. NEUROLOGIC: Cranial nerves 2 through 12 grossly intact. Motor, sensory intact. PSYCHOLOGIC: Examination is appropriate. LABORATORY DATA: Pending at the time of admission. ASSESSMENT AND PLAN: A 76-year-old white male with a very complicated past medical history as noted presents for evaluation of right great toe pain. Unfortunately, patient appears to have a very concerning diabetic foot ulcer with associated cellulitis. The patient's pulses are diminished distally compounding this issue. The patient will be admitted to the hospital for full evaluation and management of this condition. 1. Admit to General Medicine. 2. Diabetic foot ulcer-as above, I am very concerned. I have discussed my concern and whether the toe will be able to be salvaged at present time with the patient and his . We will immediately place patient on broad-spectrum antibiotics including cefepime and vancomycin therapy. We will check blood cultures x2. We will check an x-ray as well as sedimentation rate and CRP. We will determine if a surgical consultation is appropriate. 3. Decreased distal pulses-we will plan to check arterial studies in the a.m. The patient's foot/toe does not appear to be cyanotic at present time, but I am concerned that blood flow is suboptimal. 4. Hypertension-we will continue his home medications. We will follow while hospitalized and address as necessary. 5. Diabetes-we will continue lower dose Lantus of 20 units at bedtime. We will cover with sliding scale lispro. Once again, this will be followed. 6. Anticoagulation. We will continue patient on Coumadin therapy. We will check an INR. 7. Idiopathic thrombocytopenia-patient has difficult to treat disease. We will continue Imbruvica therapy. 8. Fluid, electrolytes, nutrition. Will monitor electrolytes, saline lock IV. Diabetic diet. PROPHYLAXIS: Patient will be continued on Coumadin therapy. cc: Madi Mortensen MD
[2017-01-09 19:06] LABS: AGAP 12; ALBUMIN 3.7 g/dL (3.5-5.0); ALKALINE PHOSPHATASE 145 U/L (32-122); BUN 16 mg/dL (8-22); CALCIUM 8.9 mg/dL (8.8-10.2); CHLORIDE 99 mmol/L (98-107); COSMO 278; GOT 31 U/L (10-34); GPT 32 U/L (10-44); POTASSIUM 4.3 mmol/L (3.5-5.1); SODIUM 137 mmol/L (136-145); TCO2 26 mmol/L (25-35); TOTAL BILIRUBIN 0.66 mg/dL (0.20-1.00); TOTAL PROTEIN 6.4 g/dL (6.3-8.3)
[2017-01-09 19:11] LABS: LYMPHS 24 % (21-51); MONO 6 % (1-9)
[2017-01-09] MEDS ORDERED: COUMADIN PO SCH (21:00)
[2017-01-09] MEDS ORDERED: INSULIN PEN NEEDLES ONE (22:51)
[2017-01-09] MEDS: TOPROL XL PO SCH (22:58)
[2017-01-09] MEDS: LIPITOR PO SCH (22:58)
[2017-01-09] MEDS: MAXIPIME 1 GM/NS 1 GM/50 ML IVPB IV SCH (22:59)
[2017-01-09] MEDS: HUMALOG SUBQ SCH (22:59)
[2017-01-09] MEDS: COLACE PO SCH (22:59)
[2017-01-09] MEDS: LANTUS SUBQ SCH (23:03)
[2017-01-09] MEDS: PATIENT'S OWN MED PO SCH (23:09)
[2017-01-09] MEDS: COUMADIN PO SCH (23:09)
[2017-01-09] MEDS: VANCOMYCIN 2 GM in NS 500 ML IV SCH (23:13)
[2017-01-10] MEDS: PROTONIX PO SCH (05:59)
[2017-01-10] MEDS: HUMALOG SUBQ SCH ×4 (06:00→21:24)
[2017-01-10] MEDS: MAXIPIME 1 GM/NS 1 GM/50 ML IVPB IV SCH ×2 (08:24→21:19)
[2017-01-10] MEDS: TOPROL XL PO SCH ×2 (08:25→21:23)
[2017-01-10] MEDS: FERROUS SULFATE PO SCH ×2 (08:25→16:59)
[2017-01-10] MEDS: FOLIC ACID PO SCH (08:25)
[2017-01-10] MEDS: LANOXIN PO SCH (08:25)
[2017-01-10] MEDS: COLACE PO SCH ×2 (08:25→21:23)
[2017-01-10] MEDS: VITAMIN B-12 PO SCH (08:25)
--- NOTE | 2017-01-10 10:09 | Diag Imaging Result Doc PS360 ---
FOOT COMPLETE RIGHT - 01/09/2017 INDICATION: Diabetic foot ulcer TECHNIQUE: Three views COMPARISON: 05/25/2011 FINDINGS: No fracture or dislocation. Stable degenerative changes of the tarsal joints and degenerative heel spurs. No bony erosions. Stable moderate pedal edema. Stable extensive peripheral vascular disease. No obvious foreign body. IMPRESSION: Chronic changes. Electronically signed by Jose Blanca 01/10/2017 10:07 AM
--- NOTE | 2017-01-10 18:43 | PROGRESS NOTE ---
DATE: 01/10/2017 SUBJECTIVE: Overall, patient states he is slightly improved from yesterday. The patient has decreased erythema and pain to the right lower extremity. He denies systemic symptoms, including fevers, chills, nausea, and vomiting. His p.o. intake is reasonable. OBJECTIVE: Vital signs: T-max 98.6 degrees, heart rate 70-82, respirations 18-20, blood pressure 107-129 over 54-71. General: Well nourished, well developed, in no acute distress. Cardiovascular: Irregularly irregular. No significant murmurs, rubs, or gallops. Pulmonary: Clear to auscultation bilaterally. Abdomen: Soft, nontender, nondistended. Positive bowel sounds. Extremities: Moves all extremities well. No significant clubbing, cyanosis, or edema on the left. The patient has 1+ lower extremity edema on the right. Erythema and localized fever is present but improved to the right great toe ulceration that is largely unchanged. Dermatologic: Evaluation as noted above. LABORATORY DATA: None. ASSESSMENT AND PLAN: 1. Diabetic foot ulcer-I remain concerned, but am cautiously encouraged with the improvement. We will continue current antibiotics including cefepime and vancomycin therapy. We will follow up on vascular studies. 2. Decreased distal pulses-on examination today, patient does have a more palpable pulse on the right. We will follow up vascular studies as noted above. 3. Hypertension-patient's blood pressure is reasonably controlled at present time. We will continue his current regimen. 4. Diabetes-the patient's Lantus was decreased. Despite this, patient did have an episode of hypoglycemia early this morning. We will continue to follow closely. 5. Anticoagulation-we will continue Coumadin therapy. His INR is slightly subtherapeutic. 6. Idiopathic thrombocytopenia purpura-patient is being treated with Imbruvica therapy. We will continue this. 7. Disposition-at this point, patient continues to require retirement care in the hospital setting. We will plan discharge home once appropriate. cc: Madi Mortensen MD
[2017-01-10] MEDS: COUMADIN PO SCH (21:23)
[2017-01-10] MEDS: LANTUS SUBQ SCH (21:23)
[2017-01-10] MEDS: LIPITOR PO SCH (21:23)
[2017-01-10] MEDS: PATIENT'S OWN MED PO SCH (21:27)
[2017-01-10] MEDS: VANCOMYCIN 2 GM in NS 500 ML IV SCH (21:27)
[2017-01-11] MEDS: HUMALOG SUBQ SCH ×4 (06:44→20:53)
[2017-01-11 06:49] LABS: BASO% 0.2 % (0.0-0.8); EOS# 0.16 X1000 (0.0-0.7); EOS% 1.2 % (0.0-10.0); HEMATOCRIT 39.1 % (42.0-52.0); HEMOGLOBIN 13.3 g/dL (14.0-18.0); IMM GRAN# 0.38 X1000 (0.0-0.04); IMM GRAN% 2.8 % (0.0-0.5); LYMPH# 1.93 X1000 (1.2-3.4); LYMPH% 14.4 % (20.5-51.1); MANUAL DIFF NEEDED? YES; MCH 30.4 PG (27-31); MCV 89.5 FL (81-99); MONO# 1.84 X1000 (0.11-0.59); MONO% 13.7 % (1.7-9.3); MPV 10.9 FL (7.4-10.4); NEUT% 67.7 % (42.2-75.2); PLT 444 X1000 (130-400); RBC 4.37 XMIL (4.7-6.1)
[2017-01-11 07:02] LABS: INR 1.65; PROTIME 17.9 Seconds (9.2-11.7)
[2017-01-11 07:10] LABS: AGAP 9; ALBUMIN 3.6 g/dL (3.5-5.0); ALKALINE PHOSPHATASE 139 U/L (32-122); BUN 13 mg/dL (8-22); CALCIUM 8.8 mg/dL (8.8-10.2); CHLORIDE 100 mmol/L (98-107); COSMO 281; GOT 29 U/L (10-34); GPT 31 U/L (10-44); POTASSIUM 4.3 mmol/L (3.5-5.1); SODIUM 139 mmol/L (136-145); TCO2 30 mmol/L (25-35); TOTAL BILIRUBIN 0.86 mg/dL (0.20-1.00); TOTAL PROTEIN 6.1 g/dL (6.3-8.3)
[2017-01-11 07:26] LABS: LYMPHS 16 % (21-51)
[2017-01-11 07:27] LABS: MONO 4 % (1-9); UNIDENTIFIED CELLS 2 %
[2017-01-11 07:28] LABS: LARGE PLATELETS 1+
[2017-01-11] MEDS: TOPROL XL PO SCH ×2 (08:53→20:13)
[2017-01-11] MEDS: FERROUS SULFATE PO SCH ×2 (08:53→17:32)
[2017-01-11] MEDS: VITAMIN B-12 PO SCH (08:54)
[2017-01-11] MEDS: FOLIC ACID PO SCH (08:54)
[2017-01-11] MEDS: LANOXIN PO SCH (08:54)
[2017-01-11] MEDS: COLACE PO SCH ×2 (08:54→20:13)
[2017-01-11] MEDS: MAXIPIME 1 GM/NS 1 GM/50 ML IVPB IV SCH ×2 (08:55→20:13)
[2017-01-11] MEDS: PROTONIX PO SCH (08:55)
--- NOTE | 2017-01-11 18:13 | PROGRESS NOTE ---
DATE: 01/11/2017 SUBJECTIVE: Overall, the patient continues to very slowly improve. The patient has noted decreasing erythema and induration to the right great toe. He denies systemic symptoms, including fevers, chills, nausea, vomiting, shortness of breath, or chest discomfort. OBJECTIVE: Vital Signs: T-max 98.6 degrees, heart rate of 56 to 82, respirations 16-18, blood pressure 107-135 / 57 to 73. General: Well nourished, well developed, in no acute distress. Cardiovascular: Irregularly irregular. No significant murmurs, rubs, or gallops. Pulmonary: Clear to auscultation bilaterally. Abdomen: Soft, nontender, nondistended. Positive bowel sounds. Extremities: Moves all extremities well. No significant clubbing, cyanosis, or edema on the left. The patient has 1+ lower extremity edema on the right. Dermatologic Evaluation: Reveals decreased erythema and induration to the right great toe. Plantar ulceration is unchanged. Psychologic examination: Is appropriate. LABORATORY DATA: White blood cell count 13.43, hemoglobin 13.3, hematocrit 39.1, platelet count 444,000. PT 17.9, INR is 1.65. Sodium 139, potassium 4.3, chloride 100, bicarb 30, BUN 13, creatinine 0.9, glucose 164. Calcium 8.8, total bilirubin 0.86, total protein 3.6, albumin 2.5, alkaline phosphatase 139, AST 29, ALT 31. ASSESSMENT AND PLAN: 1. Diabetic foot ulcer/cellulitis - the patient's overall condition has improved, although not to goal. For now, we will continue IV vancomycin and cefepime. Vascular studies have been ordered, but have not been performed today. We will consider a CT scan versus MRI, depending on his further progress. 2. Decreased distal pulses - this was noted upon admission. Pulses appear to be somewhat improved. We will continue to follow clinically. 3. Hypertension - patient's blood pressure is reasonably controlled on his current regimen. We will continue this. 4. Diabetes - patient's blood sugars are reasonably controlled with Lantus and sliding scale insulin. 5. Anticoagulation - patient is slightly subtherapeutic. We will continue to follow this. We will continue his current dose of Coumadin for now. 6. Idiopathic thrombocytopenia purpura - we will continue to improve Imbruvica therapy. Platelet count is slightly elevated today. DISPOSITION: At this point, the patient continues to require jail care in the hospital setting. We will plan discharge home once appropriate. cc: Madi Mortensen MD
[2017-01-11] MEDS: LIPITOR PO SCH (20:13)
[2017-01-11] MEDS: COUMADIN PO SCH (20:13)
[2017-01-11] MEDS: PATIENT'S OWN MED PO SCH (20:26)
[2017-01-11] MEDS: LANTUS SUBQ SCH (20:53)
[2017-01-11] MEDS: VANCOMYCIN 2 GM in NS 500 ML IV SCH (20:53)
[2017-01-12] MEDS: PROTONIX PO SCH (06:26)
[2017-01-12] MEDS: HUMALOG SUBQ SCH ×4 (06:26→20:21)
[2017-01-12 07:16] LABS: BASO% 0.2 % (0.0-0.8); EOS# 0.18 X1000 (0.0-0.7); EOS% 1.3 % (0.0-10.0); HEMOGLOBIN 13.4 g/dL (14.0-18.0); IMM GRAN# 0.44 X1000 (0.0-0.04); IMM GRAN% 3.2 % (0.0-0.5); LYMPH# 2.19 X1000 (1.2-3.4); MANUAL DIFF NEEDED? YES; MCHC 33.5 g/dL (33-37); MCV 89.5 FL (81-99); MONO# 1.88 X1000 (0.11-0.59); MONO% 13.8 % (1.7-9.3); MPV 10.8 FL (7.4-10.4); NEUT% 65.5 % (42.2-75.2); PLT 461 X1000 (130-400); RBC 4.47 XMIL (4.7-6.1)
[2017-01-12 07:21] LABS: AGAP 10; ALBUMIN 3.4 g/dL (3.5-5.0); ALKALINE PHOSPHATASE 142 U/L (32-122); BUN 15 mg/dL (8-22); CALCIUM 8.5 mg/dL (8.8-10.2); CHLORIDE 100 mmol/L (98-107); COSMO 282; GOT 27 U/L (10-34); GPT 33 U/L (10-44); POTASSIUM 4.5 mmol/L (3.5-5.1); SODIUM 139 mmol/L (136-145); TCO2 29 mmol/L (25-35); TOTAL BILIRUBIN 0.82 mg/dL (0.20-1.00)
[2017-01-12] MEDS: COLACE PO SCH ×2 (08:16→20:23)
[2017-01-12] MEDS: MAXIPIME 1 GM/NS 1 GM/50 ML IVPB IV SCH ×2 (08:16→20:23)
[2017-01-12] MEDS: FERROUS SULFATE PO SCH ×2 (08:16→16:26)
[2017-01-12] MEDS: TOPROL XL PO SCH ×2 (08:17→20:23)
[2017-01-12] MEDS: FOLIC ACID PO SCH (08:17)
[2017-01-12] MEDS: LANOXIN PO SCH (08:17)
[2017-01-12] MEDS: VITAMIN B-12 PO SCH (08:17)
[2017-01-12 08:48] LABS: EOS 2 % (1-10); LYMPHS 14 % (21-51); MONO 18 % (1-9)
[2017-01-12 08:49] LABS: HYPOCHROM 1+
[2017-01-12] MEDS: LANTUS SUBQ SCH (20:22)
[2017-01-12] MEDS: LIPITOR PO SCH (20:23)
[2017-01-12] MEDS: COUMADIN PO SCH (20:23)
[2017-01-12] MEDS: PATIENT'S OWN MED PO SCH (20:33)
[2017-01-12] MEDS: VANCOMYCIN 2 GM in NS 500 ML IV SCH (22:55)
--- NOTE | 2017-01-12 23:17 | PROGRESS NOTE ---
DATE: 01/12/2017 SUBJECTIVE: Overall, patient's condition continues to very slowly improve. The patient notes continued decrease in erythema and swelling to the right great toe. He denies significant pain or systemic symptoms including fevers, chills, nausea, vomiting, shortness of breath, or chest discomfort. Thus far, he is tolerating antibiotics well. His p.o. intake is adequate. OBJECTIVE: Vital signs: T-max 98.2 degrees, heart rate 75-88, respirations 15- 18, blood pressure 109-132 over 54-76. General: Well nourished, well developed, in no acute distress. Cardiovascular: Irregularly irregular. No significant murmurs, rubs, or gallops. Pulmonary: Clear to auscultation bilaterally. Abdomen: Soft, nontender, nondistended. Positive bowel sounds. Extremities: Moves all extremities well. No significant clubbing, cyanosis, or edema. Dermatologic: Evaluation reveals no evidence of rash. LABORATORY DATA: White blood cell count 13.5, hemoglobin 13.4, hematocrit 40.0 , platelet count 461,000. Sodium 139, potassium 4.5, chloride 100, bicarb 29, BUN 15, creatinine 0.9, glucose 165, calcium 8.5, total bilirubin WNL total protein 6.0, albumin 3.4, alkaline phosphatase 142, AST 27, ALT 33. ASSESSMENT AND PLAN: 1. Diabetic foot ulcer/cellulitis-overall, patient's condition continues to improve. For now, we will continue vancomycin and cefepime therapy. We will follow up on vascular studies. We will consider infectious disease consultation in the a.m. depending on patient's progress. 2. Decreased distal pulses-we will follow up on vascular studies. We will determine if further intervention is warranted. Hypertension-patient's blood pressure is reasonably controlled on his current regimen. 3. Diabetes-we will continue Lantus plus sliding-scale insulin. We will adjust as necessary. 4. Anticoagulation-we will continue patient on Coumadin therapy. 5. Idiopathic thrombocytopenia purpura-we will continue Imbruvica therapy. Platelet count is slightly elevated. 6. Disposition-at this point, the patient continues to require jail care in the hospital setting. We will plan discharge home once appropriate. cc: MD MANUEL Lauren
[2017-01-13] MEDS: HUMALOG SUBQ SCH ×4 (06:03→21:42)
[2017-01-13] MEDS: PROTONIX PO SCH (06:05)
[2017-01-13] MEDS: FERROUS SULFATE PO SCH ×2 (08:13→17:04)
[2017-01-13] MEDS: VITAMIN B-12 PO SCH (08:13)
[2017-01-13] MEDS: TOPROL XL PO SCH ×2 (08:13→21:23)
[2017-01-13] MEDS: LANOXIN PO SCH (08:14)
[2017-01-13] MEDS: FOLIC ACID PO SCH (08:14)
[2017-01-13] MEDS: MAXIPIME 1 GM/NS 1 GM/50 ML IVPB IV SCH ×2 (08:14→21:41)
[2017-01-13] MEDS: COLACE PO SCH ×2 (08:15→21:41)
--- NOTE | 2017-01-13 10:39 | Diag Imaging Result Doc PS360 ---
EXAM: MRI LOW EXT JT W/WO CON-RIGHT HISTORY: Right great toe diabetic foot ulcer/rule out osteo TECHNIQUE: MRI of the right foot with and without gadolinium; axial STIR, T1 SPGR fat sat, coronal T1 and T2, sagittal T1, T1 coronal and axial post gadolinium. COMMENT: There is increased T1 weighted signal intensity in the dorsum of the foot to between the first and second metatarsals distally. This is relatively low in signal intensity on the STIR images. It is possible this represents some degree of fat necrosis. The area in question does not demonstrate increased gadolinium enhancement and suppresses on the fat sat images. There is no evidence of marrow edema. No evidence of intraosseous enhancement is present. IMPRESSION: No evidence of osteomyelitis. Electronically signed by Arnie Cruz 01/13/2017 10:37 AM
--- NOTE | 2017-01-13 14:25 | PROGRESS NOTE ---
DATE: 01/13/2017 SUBJECTIVE: Overall, patient's condition continues to improve. The patient has decreasing erythema and swelling to the right great toe. He denies fevers, chills, nausea, vomiting, shortness of breath, or chest discomfort. Thus far, he is tolerating the IV antibiotics well. MRI of the lower extremities today reveals no evidence of osteomyelitis. OBJECTIVE: T-max 98.4 degrees, heart rate 71-76, respirations 15-18, blood pressure 109 to 121 over 54 to 64.General: Well nourished, well developed, in no acute distress. Cardiovascular: Irregularly irregular. No significant murmurs, rubs, or gallops. Pulmonary: Clear to auscultation bilaterally. Abdomen: Soft, nontender, nondistended. Positive bowel sounds. Extremities: Moves all extremities well. No significant clubbing, cyanosis, or edema. Dermatologic: Evaluation reveals no evidence of rash. LABORATORY DATA: None. ASSESSMENT AND PLAN: 1. Diabetic foot ulcer with associated cellulitis - I am encouraged with patient's improvement. For now, we will continue vancomycin and cefepime therapy. There is no evidence of osteomyelitis per MRI. We will consider transitioning to oral antibiotics in the near future and discharge home with close followup. 2. Decreased distal pulses - the patient's vascular study results are pending. We will follow this up and address as necessary. 3. Diabetes- we will continue patient on Lantus plus sliding-scale insulin. 4. Anticoagulation. We will continue Coumadin therapy. 5. Idiopathic thrombocytopenia purpura - we will continue patient on Imbruvica as prescribed by Dr. Chua. 6. Disposition - at this point, the patient continues to require [facility] care in a hospital setting. We will plan discharge home once appropriate. cc: Madi Mortensen MD
[2017-01-13] MEDS ORDERED: VANCOMYCIN 2.5 GM in NS 500 ML IV SCH (18:00)
[2017-01-13] MEDS: COUMADIN PO SCH (21:41)
[2017-01-13] MEDS: LIPITOR PO SCH (21:41)
[2017-01-13] MEDS: LANTUS SUBQ SCH (21:42)
[2017-01-13] MEDS: PATIENT'S OWN MED PO SCH (21:45)
[2017-01-13 21:53] LABS: HEMATOCRIT 38.9 % (42.0-52.0); HEMOGLOBIN 12.8 g/dL (14.0-18.0); MCH 29.6 PG (27-31); MCHC 32.9 g/dL (33-37); MPV 10.6 FL (7.4-10.4); RBC 4.32 XMIL (4.7-6.1)
[2017-01-14 06:00] VITALS: BP 128/65
[2017-01-14 06:52] LABS: INR 1.66
[2017-01-14] MEDS: HUMALOG SUBQ SCH (07:35)
[2017-01-14] MEDS: PROTONIX PO SCH (07:35)
[2017-01-14 07:44] LABS: AGAP 12; ALBUMIN 3.5 g/dL (3.5-5.0); ALKALINE PHOSPHATASE 148 U/L (32-122); BUN 15 mg/dL (8-22); CALCIUM 8.6 mg/dL (8.8-10.2); CHLORIDE 100 mmol/L (98-107); COSMO 283; GOT 26 U/L (10-34); GPT 30 U/L (10-44); POTASSIUM 4.5 mmol/L (3.5-5.1); SODIUM 139 mmol/L (136-145); TCO2 27 mmol/L (25-35); TOTAL BILIRUBIN 0.71 mg/dL (0.20-1.00); TOTAL PROTEIN 6.2 g/dL (6.3-8.3)
[2017-01-14] MEDS: VITAMIN B-12 PO SCH (08:05)
[2017-01-14] MEDS: TOPROL XL PO SCH (08:05)
[2017-01-14] MEDS: FOLIC ACID PO SCH (08:05)
[2017-01-14] MEDS: COLACE PO SCH (08:05)
[2017-01-14] MEDS: LANOXIN PO SCH (08:05)
[2017-01-14] MEDS: MAXIPIME 1 GM/NS 1 GM/50 ML IVPB IV SCH (08:06)
[2017-01-14] MEDS: FERROUS SULFATE PO SCH (08:06)
--- NOTE | 2017-01-14 11:22 | VASCULAR LAB ---
PROCEDURE NAME: Arterial Bilateral Legs - 01/10/2017 STUDY: Segmental Doppler exam. REQUESTING PHYSICIAN: Madi Mortensen MD ULTRASOUND TECHNOLOGIST SONOGRAPHER: [place] INDICATION: Ulcer and infection of the right great toe. FINDINGS: Brachial pressure on the right is 108 and on the left 108. High thigh on the right is 239 and on the left 250. Low thigh on the right is 176 and on the left 163. Calf pressure on the right is 250 and on the left 250. DP pressure on the right is 212 and on the left 164. PT on the right is 250 and on the left 183. Toe pressure on the right is 113 and on the left 115. AB on the right is 231 and on the left 169. TBI on the right is 1.05 and on the left 1.06. SUMMARY: He has pulsatile flow to the level of the toes bilaterally. The waveforms appear overall normal throughout. However the CELY is significantly elevated on both sides, more significant on the right than the left. This does suggest some component on noncompressibility or calcific disease. He does have pulsatile flow which should be adequate for wound healing but would recommend correlation with angiography as clinically indicated. I have discussed these results personally with Dr. Mortensen today. cc: MD Madi Hinton MD
--- NOTE | 2017-01-15 09:52 | DISCHARGE SUMMARY ---
ADMISSION DATE: 01/09/2017 DISCHARGE DATE: 01/14/2017 ADMISSION DIAGNOSIS: Right great toe swelling. DISCHARGE DIAGNOSES: 1. Diabetic foot ulcer with associated cellulitis, improving. 2. Decreased distal pulses with acceptable arterial studies. 3. Diabetes, present on arrival. 4. Anticoagulation, present on arrival. 5. Idiopathic thrombocytopenia purpura, present on arrival. CONSULTATIONS: None. PROCEDURES: 1. An x-ray of the foot was performed on 01/09/2017 which revealed chronic changes. 2. A lower extremity/right foot MRI was performed on 01/13/2017 which revealed no evidence of osteomyelitis. 3. A noninvasive arterial study was performed on 01/10/2017 which revealed pulsatile flow to the level of the toes bilaterally. The waveforms appear overall normal throughout. However, the CELY is significantly elevated on both sides, more significant on the right than the left. This does suggest some component of non-compressibility or calcific disease. He does have a have pulsatile flow which should be adequate for wound healing but would recommend correlation with angiography as clinically indicated. HISTORY AND PHYSICAL EXAMINATION: See admission note. PHYSICAL EXAMINATION PRIOR TO DISCHARGE: Vital Signs: Temperature 98 degrees, heart rate 91, respirations 19, blood pressure is 128/65. General: Well nourished, well developed, in no acute distress. Cardiovascular: Irregularly irregular. No significant murmurs, rubs, or gallops. Pulmonary: Clear to auscultation bilaterally. Abdomen: Soft, nontender, nondistended. Positive bowel sounds. Extremities: Moves all extremities well. No significant clubbing, cyanosis, or edema on the left. The patient does have erythema, although improving to the right great toe. Dermatologic: Evaluation reveals an ulcerative lesion to the plantar aspect of the right great toe with eschar, overall improving erythema to the toe. LABORATORY DATA: Prior to discharge, PT 18, INR is 1.66. Sodium 139, potassium 4.5, chloride 100, bicarb 27, BUN 15, creatinine 0.9, glucose 188, calcium 8.6. Total bilirubin 0.71, total protein 6.2, albumin 3.5, alkaline phosphatase 148, AST 26, ALT 30. HOSPITAL COURSE: The patient was admitted as per history and physical examination. Hospital course per condition is as follows: 1. Right great toe diabetic foot ulcer with associated cellulitis-upon admission, patient was noted to have significant edema, erythema, and localized fever. I was quite concerned that patient may not recover without amputation. While hospitalized, patient was treated with broad-spectrum antibiotics in the form of cefepime and vancomycin therapy. He tolerated this very well. Patient's erythema and induration both improved while hospitalized. Arterial study suggested adequate flow for wound healing. The patient will be discharged home with an additional week of Augmentin and doxycycline therapy. We will plan a referral to see Dr. Hall early next week. We will follow his clinical course closely. 2. Decreased distal pulses-the patient's arterial studies are as noted above. For this, I am encouraged. We will follow. 3. Diabetes-patient has longstanding disease. He was treated with Lantus plus sliding-scale lispro while hospitalized. His blood sugars remained reasonably controlled. We will continue his home dose regimen. 4. Anticoagulation-patient is anticoagulated with Coumadin. His INR was slightly subtherapeutic at discharge. We will plan to recheck this again on Thursday. We will determine if titration of Coumadin is necessary. 5. Idiopathic thrombocytopenia purpura-patient was continued on Imbruvica while hospitalized. We will defer management to Dr. Chua. DISCHARGE CONDITION: Good. DISPOSITION: Discharged to home. MEDICATIONS: 1. Augmentin 875/125 every 12 hours for 1 week. 2. Doxycycline 100 twice daily for 1 week. 3. Vitamin B12 1000 mcg daily. 4. Pantoprazole 40 mg daily. 5. Acetaminophen 650 mg every 4 hours as needed. 6. Lispro insulin with meals. 7. Iron sulfate 325 mg twice daily. 8. Lantus 20 to 40 units at bedtime. 9. Atorvastatin 10 mg at bedtime. 10. Phenergan as needed. 11. Folic acid 1 mg daily. 12. Metoprolol ER 75 mg q.12 hours. 13. Imbruvica 3 capsules at bedtime. 14. Digoxin 125 mcg daily. 15. Coumadin 3 mg at bedtime. 16. Colace 100 mg twice daily. 17. Robaxin as needed. FOLLOWUP: Patient is to follow with me on Thursday. cc: Madi Mortensen MD
== END 2017-01-14 10:08 | disposition home or self-care (01) ==
LOC: DIRADM 16:05 → 3N 17:05
PROVIDERS: ADMIT Internal Medicine; ATTEND Internal Medicine

== ENCOUNTER 2017-03-31 15:02 | Inpatient (IN) ==
[2017-03-31] MEDS ORDERED: PHENERGAN PO PRN (16:59)
[2017-03-31] MEDS ORDERED: TYLENOL PO PRN ×2 (16:59)
[2017-03-31] MEDS ORDERED: VANCOMYCIN IV PER PHARMACY MISC SCH (16:59)
[2017-03-31 17:42] LABS: MANUAL DIFF NEEDED? NO
[2017-03-31 17:46] LABS: BASO% 0.1 % (0.0-0.8); EOS# 0.06 X1000 (0.0-0.7); EOS% 0.4 % (0.0-10.0); HEMATOCRIT 38.7 % (42.0-52.0); HEMOGLOBIN 12.9 g/dL (14.0-18.0); IMM GRAN# 0.24 X1000 (0.0-0.04); IMM GRAN% 1.7 % (0.0-0.5); LYMPH# 2.37 X1000 (1.2-3.4); LYMPH% 16.4 % (20.5-51.1); MCH 30.1 PG (27-31); MCHC 33.3 g/dL (33-37); MCV 90.2 FL (81-99); MONO# 1.68 X1000 (0.11-0.59); MONO% 11.6 % (1.7-9.3); MPV 11.3 FL (7.4-10.4); NEUT% 69.8 % (42.2-75.2); PLT 320 X1000 (130-400); RBC 4.29 XMIL (4.7-6.1)
[2017-03-31 17:59] LABS: INR 2.93
[2017-03-31 18:11] LABS: AGAP 10; ALKALINE PHOSPHATASE 148 U/L (32-122); BUN 15 mg/dL (8-22); CHLORIDE 97 mmol/L (98-107); COSMO 279; GOT 17 U/L (10-34); GPT 19 U/L (10-44); POTASSIUM 4.2 mmol/L (3.5-5.1); SODIUM 136 mmol/L (136-145); TCO2 29 mmol/L (25-35); TOTAL BILIRUBIN 0.81 mg/dL (0.20-1.00); TOTAL PROTEIN 6.8 g/dL (6.3-8.3)
[2017-03-31] MEDS: TOPROL XL PO SCH (18:27)
[2017-03-31] MEDS: MAXIPIME 1 GM in NS 50 ML IV SCH (18:28)
[2017-03-31] MEDS: FERROUS SULFATE PO SCH (20:02)
[2017-03-31] MEDS: PATIENT'S OWN MED PO SCH (20:03)
[2017-03-31] MEDS: COLACE PO SCH (20:03)
[2017-03-31] MEDS: VANCOMYCIN 1.3 GM in NS 250 ML IV SCH (20:03)
[2017-03-31] MEDS ORDERED: LIPITOR PO SCH (21:00)
[2017-03-31] MEDS: LANTUS SUBQ SCH (21:25)
[2017-03-31] MEDS: HUMALOG SUBQ SCH (21:26)
[2017-04-01] MEDS: MAXIPIME 1 GM in NS 50 ML IV SCH (05:47)
[2017-04-01] MEDS: PROTONIX PO SCH ×2 (05:48→06:15)
[2017-04-01] MEDS: TOPROL XL PO SCH ×2 (05:48→16:36)
[2017-04-01] MEDS: HUMALOG SUBQ SCH ×3 (06:15→16:35)
[2017-04-01 07:04] LABS: BASO% 0.2 % (0.0-0.8); EOS# 0.09 X1000 (0.0-0.7); EOS% 0.7 % (0.0-10.0); HEMATOCRIT 35.4 % (42.0-52.0); HEMOGLOBIN 11.8 g/dL (14.0-18.0); IMM GRAN# 0.14 X1000 (0.0-0.04); IMM GRAN% 1.2 % (0.0-0.5); LYMPH# 2.27 X1000 (1.2-3.4); LYMPH% 18.9 % (20.5-51.1); MANUAL DIFF NEEDED? YES; MCHC 33.3 g/dL (33-37); MCV 90.1 FL (81-99); MONO# 1.63 X1000 (0.11-0.59); MONO% 13.5 % (1.7-9.3); MPV 11.5 FL (7.4-10.4); NEUT% 65.5 % (42.2-75.2); PLT 318 X1000 (130-400); RBC 3.93 XMIL (4.7-6.1)
[2017-04-01 07:08] LABS: INR 2.76; PROTIME 30.9 Seconds (9.2-11.7)
[2017-04-01 07:15] LABS: AGAP 10; ALBUMIN 3.2 g/dL (3.5-5.0); ALKALINE PHOSPHATASE 118 U/L (32-122); BUN 13 mg/dL (8-22); CALCIUM 7.9 mg/dL (8.8-10.2); CHLORIDE 101 mmol/L (98-107); COSMO 277; GOT 17 U/L (10-34); GPT 15 U/L (10-44); POTASSIUM 4.2 mmol/L (3.5-5.1); SODIUM 139 mmol/L (136-145); TCO2 28 mmol/L (25-35); TOTAL BILIRUBIN 1.02 mg/dL (0.20-1.00); TOTAL PROTEIN 5.7 g/dL (6.3-8.3)
[2017-04-01 07:43] LABS: EOS 2 % (1-10); LYMPHS 20 % (21-51); MONO 12 % (1-9)
[2017-04-01 07:44] LABS: HYPOCHROM 1+
[2017-04-01] MEDS: VANCOMYCIN 1.3 GM in NS 250 ML IV SCH (09:29)
[2017-04-01] MEDS: VITAMIN B-12 PO SCH (09:30)
[2017-04-01] MEDS: COLACE PO SCH ×2 (09:31→21:56)
[2017-04-01] MEDS: LANOXIN PO SCH (09:31)
[2017-04-01] MEDS: FOLIC ACID PO SCH (09:33)
[2017-04-01] MEDS: FERROUS SULFATE PO SCH ×2 (09:33→21:56)
[2017-04-01] MEDS: MAXIPIME 2 GM in NS 50 ML IV SCH (16:35)
[2017-04-01] MEDS: CUBICIN 500 MG in NS 100 ML IV SCH (17:42)
[2017-04-01] MEDS: PATIENT'S OWN MED PO SCH (21:58)
[2017-04-02] MEDS: HUMALOG SUBQ SCH ×5 (04:38→23:21)
[2017-04-02] MEDS: LANTUS SUBQ SCH ×2 (04:38→23:21)
[2017-04-02] MEDS: MAXIPIME 2 GM in NS 50 ML IV SCH ×3 (05:08→17:42)
[2017-04-02] MEDS: TOPROL XL PO SCH ×2 (05:23→17:45)
[2017-04-02] MEDS: PROTONIX PO SCH (06:39)
[2017-04-02 07:00] LABS: MANUAL DIFF NEEDED? NO
[2017-04-02 07:09] LABS: BASO% 0.3 % (0.0-0.8); EOS# 0.15 X1000 (0.0-0.7); EOS% 1.4 % (0.0-10.0); HEMATOCRIT 37.1 % (42.0-52.0); HEMOGLOBIN 12.2 g/dL (14.0-18.0); IMM GRAN# 0.19 X1000 (0.0-0.04); IMM GRAN% 1.7 % (0.0-0.5); LYMPH# 1.87 X1000 (1.2-3.4); LYMPH% 17.1 % (20.5-51.1); MCH 29.8 PG (27-31); MCHC 32.9 g/dL (33-37); MCV 90.5 FL (81-99); MONO# 1.54 X1000 (0.11-0.59); MONO% 14.1 % (1.7-9.3); MPV 11.4 FL (7.4-10.4); NEUT% 65.4 % (42.2-75.2); PLT 323 X1000 (130-400)
[2017-04-02 07:15] LABS: INR 2.1
[2017-04-02 07:24] LABS: PROTIME 23.1 Seconds (9.2-11.7)
[2017-04-02 07:43] LABS: AGAP 9; ALBUMIN 3.3 g/dL (3.5-5.0); ALKALINE PHOSPHATASE 136 U/L (32-122); BUN 15 mg/dL (8-22); CALCIUM 8.9 mg/dL (8.8-10.2); CHLORIDE 99 mmol/L (98-107); COSMO 282; GOT 13 U/L (10-34); GPT 13 U/L (10-44); POTASSIUM 4.6 mmol/L (3.5-5.1); SODIUM 137 mmol/L (136-145); TCO2 29 mmol/L (25-35); TOTAL BILIRUBIN 1.14 mg/dL (0.20-1.00); TOTAL PROTEIN 5.3 g/dL (6.3-8.3)
[2017-04-02] MEDS: FOLIC ACID PO SCH (09:20)
[2017-04-02] MEDS: COLACE PO SCH ×2 (09:20→23:16)
[2017-04-02] MEDS: FERROUS SULFATE PO SCH ×2 (09:20→23:15)
[2017-04-02] MEDS: VITAMIN B-12 PO SCH (09:21)
[2017-04-02] MEDS: LANOXIN PO SCH (09:21)
[2017-04-02] MEDS ORDERED: XYLOCAINE-MPF 2% ONE (15:33)
[2017-04-02] MEDS ORDERED: FENTANYL ONE (15:34)
[2017-04-02] MEDS ORDERED: DIPRIVAN 1% ONE (15:34)
[2017-04-02] MEDS: CUBICIN 500 MG in NS 100 ML IV SCH (18:29)
[2017-04-02] MEDS: PATIENT'S OWN MED PO SCH (23:16)
[2017-04-02] MEDS: COUMADIN PO SCH (23:20)
[2017-04-03] MEDS: PROTONIX PO SCH (05:10)
[2017-04-03] MEDS: MAXIPIME 2 GM in NS 50 ML IV SCH (05:10)
[2017-04-03] MEDS: TOPROL XL PO SCH ×2 (05:10→16:50)
[2017-04-03] MEDS: HUMALOG SUBQ SCH ×4 (06:29→21:40)
[2017-04-03] MEDS: COLACE PO SCH ×2 (10:14→21:40)
[2017-04-03] MEDS: FERROUS SULFATE PO SCH ×2 (10:14→21:40)
[2017-04-03] MEDS: LANOXIN PO SCH (10:14)
[2017-04-03] MEDS: FOLIC ACID PO SCH (10:14)
[2017-04-03] MEDS: VITAMIN B-12 PO SCH (10:14)
[2017-04-03] MEDS: KEFZOL 2 GM/D5W 2 GM/50 ML IVPB IV SCH (17:49)
[2017-04-03] MEDS: LANTUS SUBQ SCH (21:39)
[2017-04-03] MEDS: COUMADIN PO SCH (21:40)
[2017-04-03] MEDS: PATIENT'S OWN MED PO SCH (21:44)
[2017-04-04] MEDS: KEFZOL 2 GM/D5W 2 GM/50 ML IVPB IV SCH ×3 (00:36→17:02)
[2017-04-04] MEDS: HUMALOG SUBQ SCH ×4 (06:29→21:45)
[2017-04-04] MEDS: TOPROL XL PO SCH ×2 (06:30→17:08)
[2017-04-04] MEDS: PROTONIX PO SCH (06:30)
[2017-04-04 07:01] LABS: MANUAL DIFF NEEDED? NO
[2017-04-04 07:07] LABS: BASO% 0.2 % (0.0-0.8); EOS# 0.05 X1000 (0.0-0.7); EOS% 0.4 % (0.0-10.0); HEMATOCRIT 38.3 % (42.0-52.0); HEMOGLOBIN 12.8 g/dL (14.0-18.0); IMM GRAN# 0.13 X1000 (0.0-0.04); LYMPH# 2.09 X1000 (1.2-3.4); LYMPH% 16.4 % (20.5-51.1); MCHC 33.4 g/dL (33-37); MCV 89.9 FL (81-99); MONO# 1.72 X1000 (0.11-0.59); MONO% 13.5 % (1.7-9.3); MPV 11.1 FL (7.4-10.4); NEUT% 68.5 % (42.2-75.2); PLT 334 X1000 (130-400); RBC 4.26 XMIL (4.7-6.1)
[2017-04-04 07:10] LABS: INR 2.12
[2017-04-04 07:15] LABS: PROTIME 23.4 Seconds (9.2-11.7)
[2017-04-04] MEDS: VITAMIN B-12 PO SCH (08:35)
[2017-04-04] MEDS: COLACE PO SCH ×2 (08:36→21:44)
[2017-04-04] MEDS: LANOXIN PO SCH (08:36)
[2017-04-04] MEDS: FOLIC ACID PO SCH (08:36)
[2017-04-04] MEDS: FERROUS SULFATE PO SCH ×2 (08:37→21:44)
[2017-04-04] MEDS ORDERED: INSULIN PEN NEEDLES ONE (16:48)
[2017-04-04] MEDS: LANTUS SUBQ SCH (21:44)
[2017-04-04] MEDS: COUMADIN PO SCH (21:44)
[2017-04-04] MEDS: PATIENT'S OWN MED PO SCH (21:45)
[2017-04-05] MEDS: KEFZOL 2 GM/D5W 2 GM/50 ML IVPB IV SCH ×3 (00:48→15:54)
[2017-04-05] MEDS: HUMALOG SUBQ SCH ×4 (06:31→21:00)
[2017-04-05] MEDS: TOPROL XL PO SCH ×2 (06:32→16:11)
[2017-04-05] MEDS: PROTONIX PO SCH (06:32)
[2017-04-05] MEDS: VITAMIN B-12 PO SCH (08:43)
[2017-04-05] MEDS: FERROUS SULFATE PO SCH ×2 (08:43→21:00)
[2017-04-05] MEDS: FOLIC ACID PO SCH (08:43)
[2017-04-05] MEDS: LANOXIN PO SCH (08:43)
[2017-04-05] MEDS: COLACE PO SCH ×2 (08:43→21:00)
[2017-04-05] MEDS: COUMADIN PO SCH (21:00)
[2017-04-05] MEDS: LANTUS SUBQ SCH (21:00)
[2017-04-05] MEDS: PATIENT'S OWN MED PO SCH (21:04)
[2017-04-06] MEDS: KEFZOL 2 GM/D5W 2 GM/50 ML IVPB IV SCH ×2 (00:29→08:44)
[2017-04-06] MEDS: TOPROL XL PO SCH (06:10)
[2017-04-06] MEDS: PROTONIX PO SCH (06:10)
[2017-04-06] MEDS: HUMALOG SUBQ SCH ×2 (06:11→11:38)
[2017-04-06] MEDS: VITAMIN B-12 PO SCH (08:39)
[2017-04-06] MEDS: COLACE PO SCH (08:39)
[2017-04-06] MEDS: FERROUS SULFATE PO SCH (08:39)
[2017-04-06] MEDS: LANOXIN PO SCH (08:39)
[2017-04-06] MEDS: FOLIC ACID PO SCH (08:40)
[2017-04-06 15:35] VITALS: BP 101/55
== END 2017-04-06 18:16 | disposition home or self-care (01) ==
LOC: DIRADM → OBSVTOIN 15:02 → 3N 16:45
PROVIDERS: ADMIT Internal Medicine; ATTEND Internal Medicine